=== PATIENT | male | born 1950 | race Caucasian/White ===

== ENCOUNTER 2018-04-19 14:51 | Outpatient (REF) | payer MEDICARE, SELFPAY ==
[2018-04-19 15:08] LABS: BUN 23 mg/dL (7-18); Calcium 8.4 mg/dL (8.5-10.1); Glucose 180 mg/dL (70-100)
[2018-04-19 15:10] LABS: Anion Gap 8.5 mmol/L (3-11); CO2 26.5 mmol/L (21.0-32.0); CREATININE 1.37 mg/dL (0.70-1.30); Chloride 101 mmol/L (98-107); Estimated GFR 51.67 (mL/min/1.73m2); Potassium 4.1 mmol/L (3.5-5.1); Sodium 136 mmol/L (136-145)
== END 2018-04-19 14:52 ==
LOC: LBN 14:51
PROVIDERS: PCP Family Medicine; Visit Provider Family Medicine
DX: I48.91 Unspecified atrial fibrillation (principal); E87.5 Hyperkalemia; Z47.1 Aftercare following joint replacement surgery
CPT/HCPCS: 80048

== ENCOUNTER 2019-03-14 19:22 | Outpatient (REF) | payer MEDICARE, SELFPAY ==
[2019-03-14 21:05] LABS: Anion Gap 9.7 mmol/L (3-11); BUN 29 mg/dL (7-18); CO2 28.3 mmol/L (21.0-32.0); Calcium 9.3 mg/dL (8.5-10.1); Chloride 98 mmol/L (98-107); Glucose 95 mg/dL (70-100); Potassium 4.6 mmol/L (3.5-5.1); Sodium 136 mmol/L (136-145)
== END 2019-03-14 19:42 ==
LOC: NCHCN 19:22
PROVIDERS: PCP Family Medicine; Visit Provider Family Medicine
DX: I50.9 Heart failure, unspecified (principal)
CPT/HCPCS: 80048

== ENCOUNTER 2019-04-04 08:52 | Outpatient (REF) | payer MEDICARE, SELFPAY ==
[2019-04-04 21:30] LABS: Anion Gap 7.7 mmol/L (3-11); BUN 23 mg/dL (7-18); CO2 29.3 mmol/L (21.0-32.0); CREATININE 1.31 mg/dL (0.70-1.30); Calcium 9.2 mg/dL (8.5-10.1); Chloride 100 mmol/L (98-107); Estimated GFR 54.25 (mL/min/1.73m2); Glucose 127 mg/dL (70-100); NT-proBNP 906 pg/mL; Potassium 4.3 mmol/L (3.5-5.1); Sodium 137 mmol/L (136-145)
== END 2019-04-04 09:12 ==
LOC: LBN 08:52
PROVIDERS: PCP Family Medicine; Visit Provider Nurse Practitioner Family
DX: I50.32 Chronic diastolic (congestive) heart failure (principal)
CPT/HCPCS: 80048; 83880

== ENCOUNTER 2020-02-16 11:09 | Outpatient (REF) | payer MEDICARE, SELFPAY ==
[2020-02-16 21:55] LABS: ALT 36 U/L (16-63); AST 32 U/L (15-37); Albumin 4.2 g/dL (3.4-5.0); Alkaline Phosphatase 70 U/L (46-116); Anion Gap 6.4 mmol/L (3-11); BUN 23 mg/dL (7-18); Bilirubin, Total 0.7 mg/dL (0.2-1.0); CO2 30.6 mmol/L (21.0-32.0); CREATININE 1.52 mg/dL (0.70-1.30); Calculated LDL 131 mg/dL (<100); Chloride 102 mmol/L (98-107); Cholesterol 194 mg/dL (<200); Estimated GFR 45.57 (mL/min/1.73m2); Glucose 106 mg/dL (74-106); HDL Cholesterol 34 mg/dL (40-60); Potassium 4.2 mmol/L (3.5-5.1); Sodium 139 mmol/L (136-145); Total Protein 7.4 g/dL (6.4-8.2); Triglyceride 147 mg/dL (<150)
== END 2020-02-16 11:29 ==
LOC: NCHCN 11:09
PROVIDERS: PCP Family Medicine; Visit Provider Family Medicine
DX: I10 Essential (primary) hypertension (principal); I50.9 Heart failure, unspecified; Z13.6 Encounter for screening for cardiovascular disorders
CPT/HCPCS: 80053; 80061

== ENCOUNTER 2020-03-30 12:06 | Outpatient (REF) | payer MEDICARE, SELFPAY ==
[2020-03-30 22:22] LABS: Anion Gap 7.6 mmol/L (3-11); BUN 26 mg/dL (7-18); CO2 30.4 mmol/L (21.0-32.0); Calcium 9.2 mg/dL (8.5-10.1); Chloride 99 mmol/L (98-107); Estimated GFR 46.27 (mL/min/1.73m2); Glucose 130 mg/dL (74-106); Potassium 3.9 mmol/L (3.5-5.1); Sodium 137 mmol/L (136-145)
== END 2020-03-30 12:26 ==
LOC: LBN 12:06
PROVIDERS: PCP Family Medicine; Visit Provider Nurse Practitioner Family
DX: I50.9 Heart failure, unspecified (principal)
CPT/HCPCS: 80048

== ENCOUNTER 2020-05-04 08:28 | Outpatient (REF) | payer MEDICARE, SELFPAY ==
[2020-05-04 22:25] LABS: Hemoglobin A1C 6.1 % (3.8-5.6)
[2020-05-04 22:51] LABS: Anion Gap 10.8 mmol/L (3-11); BUN 21 mg/dL (7-18); CO2 27.2 mmol/L (21.0-32.0); CREATININE 1.27 mg/dL (0.70-1.30); Calcium 9.2 mg/dL (8.5-10.1); Calculated LDL 140 mg/dL (<100); Chloride 103 mmol/L (98-107); Cholesterol 198 mg/dL (<200); Estimated GFR 56.07 (mL/min/1.73m2); Glucose 102 mg/dL (74-106); HDL Cholesterol 36 mg/dL (40-60); Potassium 4.3 mmol/L (3.5-5.1); Sodium 141 mmol/L (136-145); Triglyceride 111 mg/dL (<150)
[2020-05-06 04:52] LABS: Vitamin D 25 Total 30.7 ng/ml (30-100)
== END 2020-05-04 08:48 ==
LOC: NCHCN 08:28
PROVIDERS: PCP Family Medicine; Visit Provider Family Medicine
DX: I10 Essential (primary) hypertension (principal); E88.81 Metabolic syndrome and other insulin resistance; R73.03 Prediabetes; N18.3 Chronic kidney disease, stage 3 (moderate)
CPT/HCPCS: 80048; 80061; 82306; 83036

== ENCOUNTER 2020-10-26 14:45 | Outpatient (REF) | payer MEDICARE, OTHER, SELFPAY ==
[2020-10-26 14:12] LABS: Bacteria Negative HPF (Negative); C & S Indicated? No; Casts Negative LPF (Negative); Crystals Negative HPF (Negative); Epithelial Cells Rare HPF (Negative); Mucus Negative (Negative); RBC 0-2 HPF (0-2); WBC 0-2 HPF (0-5)
[2020-10-26 21:21] LABS: Abs Immature Grans 0.01 10^3/uL (0.0-0.06); Absolute Basophil Count 0.06 10^3/uL (0.0-0.2); Absolute Eosinophil Count 0.13 10^3/uL (0.0-0.7); Absolute Monocyte Count 1.01 10^3/uL (0.1-0.8); Absolute Neutrophil Count 5.39 10^3/uL (1.2-6.7); Basophils % 0.7; Eosinophils % 1.5; HCT 43.2 % (40.0-50.0); HGB 14.6 g/dL (13.5-17.5); Immature Grans % 0.1; MCH 31.7 pg (27.0-33.0); MCHC 33.8 % (32.0-36.0); MCV 93.7 fL (80-95); MPV 10.9 fL (8.0-11.0); Monocytes % 11.5; Neutrophils % 61.2; Nucleated RBC 0 %; Platelet Count 218 10^3/uL (130-400); RBC 4.61 10^6/uL (4.36-5.78); RDW 12.1 % (11.8-14.1); RDW-SD 41.8 fL
[2020-10-26 21:32] LABS: ALT 36 U/L (16-63); AST 31 U/L (15-37); Albumin 4.3 g/dL (3.4-5.0); Alkaline Phosphatase 71 U/L (46-116); Anion Gap 8.2 mmol/L (3-11); BUN 23 mg/dL (7-18); Bilirubin, Total 0.8 mg/dL (0.2-1.0); CO2 28.8 mmol/L (21.0-32.0); CREATININE 1.4 mg/dL (0.70-1.30); Calcium 9.2 mg/dL (8.5-10.1); Chloride 102 mmol/L (98-107); Estimated GFR 49.96 (mL/min/1.73m2); Glucose 95 mg/dL (74-106); Sodium 139 mmol/L (136-145); Total Protein 7.2 g/dL (6.4-8.2)
== END 2020-10-26 14:46 | disposition home or self-care (01) ==
LOC: NCHCN 14:45
PROVIDERS: PCP Nurse Practitioner Family; Visit Provider Nurse Practitioner Family
DX: R10.32 Left lower quadrant pain (principal)
CPT/HCPCS: 80053; 81015; 85025

== ENCOUNTER 2021-07-25 09:15 | Outpatient (REF) | payer MEDICARE, OTHER, SELFPAY ==
[2021-07-25 16:43] LABS: ALT 31 U/L (16-63); AST 25 U/L (15-37); Alkaline Phosphatase 80 U/L (46-116); Anion Gap 9.6 mmol/L (3-11); BUN 24 mg/dL (7-18); Bilirubin, Total 0.6 mg/dL (0.2-1.0); CO2 28.4 mmol/L (21.0-32.0); CREATININE 1.4 mg/dL (0.70-1.30); Calculated LDL 54 mg/dL (<100); Chloride 103 mmol/L (98-107); Cholesterol 102 mg/dL (<200); Estimated GFR 49.82 (mL/min/1.73m2); Glucose 103 mg/dL (74-106); HDL Cholesterol 38 mg/dL (40-60); Potassium 4.1 mmol/L (3.5-5.1); Sodium 141 mmol/L (136-145); Total Protein 6.8 g/dL (6.4-8.2); Triglyceride 51 mg/dL (<150)
[2021-07-25 17:08] LABS: Hemoglobin A1C 6.2 % (<5.7)
== END 2021-07-25 09:16 | disposition home or self-care (01) ==
LOC: NCHCN 09:15
PROVIDERS: PCP Nurse Practitioner Family; Visit Provider Family Medicine
DX: I10 Essential (primary) hypertension (principal); R73.03 Prediabetes; E78.6 Lipoprotein deficiency; N18.30 Chronic kidney disease, stage 3 unspecified; E66.9 Obesity, unspecified; I48.91 Unspecified atrial fibrillation
CPT/HCPCS: 80053; 80061; 83036

== ENCOUNTER 2022-10-03 08:19 | Outpatient (REF) | payer MEDICARE, OTHER, SELFPAY ==
[2022-10-03 15:41] LABS: ALT 34 U/L (16-63); AST 34 U/L (15-37); Albumin 4.1 g/dL (3.4-5.0); Alkaline Phosphatase 77 U/L (46-116); BUN 25 mg/dL (7-18); Bilirubin, Total 0.8 mg/dL (0.2-1.0); CREATININE 1.4 mg/dL (0.70-1.30); Calcium 9.5 mg/dL (8.5-10.1); Calculated LDL 43 mg/dL (<100); Chloride 102 mmol/L (98-107); Cholesterol 89 mg/dL (<200); Estimated GFR 53.07 (mL/min/1.73m2); Glucose 116 mg/dL (74-106); HDL Cholesterol 35 mg/dL (40-60); Potassium 4.1 mmol/L (3.5-5.1); Sodium 139 mmol/L (136-145); Total Protein 7.2 g/dL (6.4-8.2); Triglyceride 57 mg/dL (<150)
== END 2022-10-03 08:20 | disposition home or self-care (01) ==
LOC: LBN 08:19
PROVIDERS: PCP Nurse Practitioner Family; Visit Provider Nurse Practitioner Family
DX: I25.10 Atherosclerotic heart disease of native coronary artery without angina pectoris (principal); E78.2 Mixed hyperlipidemia; I10 Essential (primary) hypertension
CPT/HCPCS: 80053; 80061

== ENCOUNTER 2023-05-14 13:35 | Outpatient (REF) | payer MEDICARE, OTHER, SELFPAY ==
[2023-05-15 10:22] LABS: Kappa Free Light Chain 2.25 mg/dL (0.33-1.94); Lambda Free Light Chain 1.38 mg/dL (0.57-2.63)
[2023-05-15 13:54] LABS: Albumin 60.3 % (55.8-66.1); Albumin g/dL 4.3 g/dL (3.6-5.2); Total Protein 7.2 g/dL (6.3-8.2)
[2023-05-15 14:27] LABS: Albumin, Urine mg/dL 2 mg/dL; Globulins, Urine mg/dL 6 mg/dL; Immunotyping, Urine (See Note); Total Protein Urine 8 mg/dL (See Note)
== END 2023-05-14 13:36 | disposition home or self-care (01) ==
LOC: LBN 13:35
PROVIDERS: PCP Nurse Practitioner Family; Visit Provider Student in an Organized Health Care Education/Training Program
DX: E85.9 Amyloidosis, unspecified (principal)
CPT/HCPCS: 84156; 84166; 86335; 83883; 84165

== ENCOUNTER 2023-09-25 22:16 | Outpatient (REF) | payer MEDICARE, OTHER, SELFPAY ==
[2023-09-25 21:26] LABS: HCT 40.4 % (40.0-50.0); HGB 13.8 g/dL (13.5-17.5); MCH 31.6 pg (27.0-33.0); MCHC 34.2 % (32.0-36.0); MCV 92 fL (80-95); MPV 10.5 fL (8.0-11.0); Platelet Count 241 10^3/uL (130-400); RBC 4.37 10^6/uL (4.36-5.78); RDW 12.1 % (11.8-14.1); RDW-SD 41.6 fL; WBC 6.41 10^3/uL (4.4-10.8)
[2023-09-25 21:45] LABS: ALT 25 U/L (16-63); AST 28 U/L (15-37); Albumin 4.3 g/dL (3.4-5.0); Alkaline Phosphatase 81 U/L (46-116); Anion Gap 9.1 mmol/L (3-11); BUN 29 mg/dL (7-18); Bilirubin, Total 0.6 mg/dL (0.2-1.0); CO2 25.9 mmol/L (21.0-32.0); CREATININE 1.7 mg/dL (0.70-1.30); Calcium 10.1 mg/dL (8.5-10.1); Chloride 101 mmol/L (98-107); Estimated GFR 41.78 (mL/min/1.73m2); Glucose 95 mg/dL (74-106); Lipase 33 U/L (16-77); Potassium 4.1 mmol/L (3.5-5.1); Sodium 136 mmol/L (136-145)
== END 2023-09-25 22:17 | disposition home or self-care (01) ==
LOC: NCHCN 22:16
PROVIDERS: PCP Family Medicine; Visit Provider Family Medicine
DX: R10.9 Unspecified abdominal pain (principal)
CPT/HCPCS: 80053; 83690; 85027

== ENCOUNTER 2023-11-19 14:08 | Outpatient (REF) | payer MEDICARE, OTHER, SELFPAY ==
[2023-11-19 14:57] LABS: ALT 32 U/L (16-63); AST 27 U/L (15-37); Albumin 3.9 g/dL (3.4-5.0); Alkaline Phosphatase 79 U/L (46-116); Anion Gap 7.7 mmol/L (3-11); BUN 20 mg/dL (7-18); Bilirubin, Total 0.6 mg/dL (0.2-1.0); CO2 30.3 mmol/L (21.0-32.0); CREATININE 1.5 mg/dL (0.70-1.30); Calcium 9.1 mg/dL (8.5-10.1); Calculated LDL 65 mg/dL (<100); Chloride 103 mmol/L (98-107); Cholesterol 126 mg/dL (<200); Estimated GFR 48.55 (mL/min/1.73m2); Glucose 97 mg/dL (74-106); HDL Cholesterol 47 mg/dL (40-60); Sodium 141 mmol/L (136-145); Total Protein 7.1 g/dL (6.4-8.2); Triglyceride 74 mg/dL (<150)
[2023-11-19 15:06] LABS: Hemoglobin A1C 5.8 % (<5.7)
== END 2023-11-19 14:09 | disposition home or self-care (01) ==
LOC: NCHCN 14:08
PROVIDERS: PCP Family Medicine; Visit Provider Family Medicine
DX: I10 Essential (primary) hypertension (principal); R73.09 Other abnormal glucose
CPT/HCPCS: 80053; 80061; 83036

== ENCOUNTER → 2024-01-10 08:44 | Outpatient (BNVA) | payer MEDICARE, OTHER, SELFPAY | PROVIDERS: PCP Family Medicine; Referring Provider Family Medicine; Visit Provider Surgery | DX: K92.1 Melena (principal); R10.9 Unspecified abdominal pain; K21.9 Gastro-esophageal reflux disease without esophagitis; K57.30 Diverticulosis of large intestine without perforation or abscess without bleeding | CPT/HCPCS: 99204 ==

== ENCOUNTER 2024-01-10 10:16 | Outpatient (CLI) | payer MEDICARE, OTHER, SELFPAY ==
[2024-01-10 10:11] LABS: Abs Immature Grans 0.02 10^3/uL (0.0-0.06); Absolute Basophil Count 0.04 10^3/uL (0.0-0.2); Absolute Eosinophil Count 0.13 10^3/uL (0.0-0.7); Absolute Lymphocyte Count 1.73 10^3/uL (1.2-3.4); Absolute Monocyte Count 0.92 10^3/uL (0.1-0.8); Absolute Neutrophil Count 4.36 10^3/uL (1.2-6.7); Basophils % 0.6; Eosinophils % 1.8; HCT 40.7 % (40.0-50.0); HGB 13.7 g/dL (13.5-17.5); Immature Grans % 0.3; MCH 31.1 pg (27.0-33.0); MCHC 33.7 % (32.0-36.0); MCV 92 fL (80-95); MPV 9.8 fL (8.0-11.0); Monocytes % 12.8; Neutrophils % 60.5; Platelet Count 220 10^3/uL (130-400); RBC 4.41 10^6/uL (4.36-5.78); RDW 12.9 % (11.8-14.1); RDW-SD 44.3 fL
[2024-01-10 10:40] LABS: ALT 38 U/L (16-63); AST 22 U/L (15-37); Albumin 4.3 g/dL (3.4-5.0); Alkaline Phosphatase 89 U/L (46-116); Anion Gap 7.1 mmol/L (3-11); BUN 17 mg/dL (7-18); Bilirubin, Total 0.5 mg/dL (0.2-1.0); CO2 31.9 mmol/L (21.0-32.0); CREATININE 1.3 mg/dL (0.70-1.30); Calcium 9.4 mg/dL (8.5-10.1); Chloride 103 mmol/L (98-107); Estimated GFR 57.65 (mL/min/1.73m2); Ferritin 133 ng/mL (26-388); Glucose 102 mg/dL (74-106); Potassium 3.8 mmol/L (3.5-5.1); Sodium 142 mmol/L (136-145); Total Protein 7.7 g/dL (6.4-8.2)
== END 2024-01-10 10:17 | disposition home or self-care (01) ==
LOC: LBO 10:16
PROVIDERS: PCP Family Medicine; Visit Provider Surgery
DX: K62.5 Hemorrhage of anus and rectum (principal); K21.9 Gastro-esophageal reflux disease without esophagitis; K57.30 Diverticulosis of large intestine without perforation or abscess without bleeding; Z95.0 Presence of cardiac pacemaker; I50.9 Heart failure, unspecified; E78.5 Hyperlipidemia, unspecified; Z92.29 Personal history of other drug therapy
CPT/HCPCS: 36415; 80053; 99204; 82728; 85025

== ENCOUNTER 2024-01-18 09:45 | Day surgery (SDC) | payer MEDICARE, OTHER, SELFPAY ==
--- NOTE | 2024-01-18 | DI.CT_ITS ---
Exam(s) CT ABDOMEN PELVIS W EXAM: CT ABDOMEN PELVIS W CLINICAL HISTORY: colon cancer 30cm. TECHNIQUE: Imaging Protocol: Axial computed tomography images with coronal and sagittal reformatted images were created and reviewed CONTRAST MATERIAL: Intravenous: Omnipaque-350 100cc Oral: Yes. Oral contrast was also administered for bowel opacification. COMPARISON: No exams were available for comparison FINDINGS: VISUALIZED LUNG BASES: No nodules nor pleural effusions evident. Cardiac pacemaker wires noted. ABDOMEN: There is no ascites. LIVER: There are no focal hepatic lesions evident. No dilated intrahepatic ducts. GALLBLADDER/BILIARY: No obvious gallbladder pathology. CBD is not dilated. PANCREAS: No evidence of pancreatic mass nor dilatation of the pancreatic duct. SPLEEN: Spleen is not enlarged. No obvious intrasplenic lesions. Splenic and portal veins are paten t. ADRENALS: There are no significant adrenal masses. KIDNEYS:There are benign cysts noted in both kidneys, these being more numerous and larger in left ki dney, the largest measuring 6 by 3.3 cm. This is a large cysts which extends from the renal pelvis r egion out to the peripheral cortex surface. No solid components. However, there is also a calcifica tions seen in the lateral cortex of the left kidney which appears to be in a slightly dilated calyx a nd consistent with 3 adjacent calculi, the largest measuring 5-6 mm. The other cysts do not contain calculi. There is no solid renal mass evident. There are no calculi in the nondilated ureters. ABDOMINAL AORTA: Abdominal aorta is not enlarged. LYMPH NODES:There is no retroperitoneal nor paraaortic adenopathy. ABDOMINAL WALL: No evidence of significant anterior abdominal wall nor inguinal hernia. GI: There is no evidence of bowel obstruction, free air, nor abscess. The administered oral contrast has reached ileocecal valve. There is no evidence of small-bowel obst ruction. There is some fluid noted in the ascending colon and transverse colon and proximal descendi ng colon no obvious colitis pattern. There are sigmoid diverticuli without evidence of acute diverti culitis. PELVIS: GI: No evidence of appendicitis. LYMPH NODES: There is no intrapelvic nor inguinal adenopathy. REPRODUCTIVE: The prostate gland is enlarged, measuring 6 cm wide by 5 cm AP by 6 cm craniocaudal. URINARY BLADDER: No calculi nor obvious masses evident OSSEOUS: No fractures and no significant osseous lesions. IMPRESSION: 1. There are multiple cysts in both kidneys, larger and more numerous in the left kidney. In additio n, there are multiple small calculi in what is probably a dilated calyx in the upper pole the left ki dney. No hydronephrosis. No hydroureter. No solid renal masses evident. No abnormality in the uri nary bladder. X 2. Enlarged prostate gland. 3. Fluid noted throughout most of the large bowel. Probable diarrhea. No evidence of small-bowel ob struction. No free fluid. 4. Sigmoid diverticuli with no evidence of acute diverticulitis. RADIATION DOSE DELIVERED: 1,108.85mGy.cm Total DLP DATA REPOSITORY: All CT scans at this facility are submitted to the National Radiology Data Registry (NRDR) Dose Index Registry (DIR) with the [employer] (ACR). RADIATION OPTIMIZATION: All CT scans at this facility use at least one of these dose optimization te chniques: automated exposure control; mA and/or kV adjustment per patient size (includes targeted exa ms where dose is matched to clinical indication); or iterative reconstruction.
[2024-01-18 09:50] VITALS: BP 143/90; PULSE 76; RESP 18; TEMP 36.7; O2SAT 76
[2024-01-18] MEDS: Lactated Ringers 1,000 ML 80 ML IV (10:18)
--- NOTE | 2024-01-18 11:44 | W.ANESPRE ---
General Info Date of Service Date Performed: 01/18/24 Height: 5 ft 11 in Weight: 99.6 kg Body Mass Index (BMI): 30.6 Surgical Procedure: Operation Date: 01/18/24 11:05 Proposed Procedure Side Surgeon p Colonoscopy/Gastroscopy Jailyn Melgar DO Actual Procedure Side Surgeon p Colonoscopy/Gastroscopy Not Applicable Jailyn Melgar DO Pre-Op Diagnosis Post-Op Diagnosis screening GERD Meds Allergies and Home Medications Allergies Allergy/AdvReac Type Severity Reaction Status Date / Time No Known Drug Allergies Allergy Unknown KNDA Verified 01/18/24 10:05 metoprolol AdvReac Per Verified 01/18/24 10:05 states it dropped his BP way to low Home Medication Medication Instructions Recorded atorvastatin 20 mg tablet 20 mg PO DAILY 01/04/24 lisinopril 5 mg tablet 5 mg PO DAILY 01/04/24 rivaroxaban 20 mg tablet (Xarelto) 20 mg PO DAILY 01/04/24 sildenafil 100 mg tablet 100 mg PO DAILY PRN 01/04/24 simethicone 125 mg capsule (Gas 125 mg PO TID-QID PRN 01/04/24 Relief (simethicone)) torsemide 20 mg tablet 20 mg PO DAILY 01/04/24 acetaminophen 500 mg tablet 1,000 mg PO QHS 01/10/24 (Tylenol Extra Strength) coenzyme Q10 300 mg capsule (Co 300 mg PO .one every other day 01/10/24 Q-10) omeprazole 20 mg capsule,delayed mg 01/18/24 release pantoprazole 20 mg tablet,delayed mg PO 01/18/24 release Current Visit Medications: Current Medications Generic Name Dose Route Start Last Admin Trade Name Freq PRN Reason Stop Dose Admin Hyoscyamine Sulfate 0.125 mg 01/18/24 03:26 Hyoscyamine 0.125 Mg Sl/Oral/Chew SL 02/17/24 03:25 DIRECTED PRN Ringer's Solution 1,000 mls @ 80 mls/hr 01/18/24 06:00 01/18/24 10:18 IV 02/16/24 23:59 80 mls/hr INFUSION FREDRICK Administration IV Miscellaneous Supplies 1 each 01/18/24 06:00 Iv Access IV 02/16/24 23:59 DIRECTED FREDRICK Ondansetron HCl 4 mg 01/18/24 03:26 Ondansetron 4 Mg/2 Ml Vial IVP 02/17/24 03:25 Q4H PRN PRN Nausea / Vomiting Sodium Chloride 0 ml 01/18/24 06:00 Normal Saline Flush 10 Ml Syr IV 02/16/24 23:59 PRN PRN Sodium Chloride 0 ml 01/18/24 06:00 Normal Saline 10 Ml Vial IJ 02/16/24 23:59 DIRECTED PRN Sterile Water 0 ml 01/18/24 06:00 Water,Injection,Sterile 10 Ml Vial IJ 02/16/24 23:59 DIRECTED PRN PFSH Active Problems Active Problems: Problem Status Onset Code 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 Z92.29 Rectal bleeding K62.5 Pacemaker Z95.0 Abdominal pain R10.9 Melena K92.1 Medical History Medical History Erectile dysfunction Heart failure Prediabetes Diverticula of intestine Essential hypertension Atrial fibrillation Chronic kidney disease, stage 3 Chronic sinusitis Cervical spondylosis Metabolic syndrome X GERD (gastroesophageal reflux disease) Actinic keratosis Amyloidosis Hyperlipidemia Surgical History Surgical History History of colonoscopy (~06/26/12) Tobacco Smoking/Tobacco Use Status: Never Alcohol Alcohol Intake: former Substance Use Substance use: Never Substance use type: does not use Vital Signs and Lab Results Vital Signs Most Recent Vital Signs in EMR: Most Recent Vital Signs Temp Pulse Resp BP Pulse Ox 36.7 C 76 18 143/90 H 76 L 01/18/24 09:50 01/18/24 09:50 01/18/24 09:50 01/18/24 09:50 01/18/24 09:50 Lab Results Blood Type / Crossmatch: No Data to Display Complete Blood Count: White Blood Count 7.20 10^3/uL (4.4-10.8) 01/10/24 10:05 Red Blood Count 4.41 10^6/uL (4.36-5.78) 01/10/24 10:05 Hemoglobin 13.7 g/dL (13.5-17.5) 01/10/24 10:05 Hematocrit 40.7 % (40.0-50.0) 01/10/24 10:05 Platelet Count 220 10^3/uL (130-400) 01/10/24 10:05 Complete Metabolic Panel: Sodium 142 mmol/L (136-145) 01/10/24 10:05 Potassium 3.8 mmol/L (3.5-5.1) 01/10/24 10:05 Chloride 103 mmol/L (98-107) 01/10/24 10:05 Carbon Dioxide 31.9 mmol/L (21.0-32.0) 01/10/24 10:05 BUN 17 mg/dL (7-18) 01/10/24 10:05 Creatinine 1.3 mg/dL (0.70-1.30) 01/10/24 10:05 Est GFR (CKD-EPI 2020) 57.65 (mL/min/1.73m2) 01/10/24 10:05 Calcium 9.4 mg/dL (8.5-10.1) 01/10/24 10:05 Albumin 4.3 g/dL (3.4-5.0) 01/10/24 10:05 Glucose 102 mg/dL (74-106) 01/10/24 10:05 Liver Function Panel: Alanine Aminotransferase (ALT/SGPT) 38 U/L (16-63) 01/10/24 10:05 Aspartate Amino Transf (AST/SGOT) 22 U/L (15-37) 01/10/24 10:05 Coagulation Panel: No Data to Display Cardiac Panel: No Data to Display Arterial Blood Gas: No Data to Display Venous Blood Gas: No Data to Display Pancreas Panel: No Data to Display Thyroid Panel: No Data to Display Infectious Disease: No Data to Display Blood Cultures: No Data to Display Toxicology Panel: No Data to Display Anesthesia Assessment and Plan Anesthesia History Personal History: No History of Anesthesia Complications Family History: No Family History of Anesthesia Complications Exercise Tolerance Exercise Tolerance: Metabolic Equivalents>4 Pertinent Negatives Pertinent Negatives: No Symptoms of GERD Cardiac & Pulmonary Exam Cardiac Exam: Normal S1/S2 Heart Sounds Pulmonary Exam: Clear Bilateral Breath Sounds Implantable Cardiac Device Does patient have a Pacemaker or an ICD?: Yes Device Sales Supervisor:: Outline MRI CRTD Reason for Placement:: A-flutter cardiomyopathy Date of Last Device Interrogation:: 01/01/24 Airway Exam Known Difficult Airway: No Mallampati Class: 2 Mouth Opening: Normal (> 3cm) Thyromental Distance: Greater than 3 cm Neck Range of Motion: Full ROM Neck Circumference: Normal Teeth Condition: Normal Dentition ASA Classification ASA Score: ASA 3 Emergency Case?: No NPO Status NPO Status: NPO Clears >2 hours, Solids >8 hours Anesthesia Plan Resuscitation Status: Full Code Anesthesia Technique: General Anesthesia Airway Planned: Natural Airway Monitors Used: Standard Monitors Preoperative Comments:: 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 Despite heart issues, compensates well with no recent change in respiratory effort. Lona Bird WINE SALES REPRESENTATIVE
[2024-01-18 11:51] VITALS: BMI 30.6
--- NOTE | 2024-01-18 12:02 | ESO_PTH ---
PATIENT: Junior Manriquez LOC: [facility] U#:[id number] AGE/SX: 73/M ROOM: RE01/18/[address]: Jailyn Melgar : 1950 BED: DIS: 01/18/2024 SPEC #: [id number] RECD: 01/18/24 13:31 STATUS: JESSIKA CALDWELL #: [id number] HARSHA: 01/18/24 12:[address]: Jailyn Melgar DEPT: Surgical Specimen RECD BY: Adri Davis ENTERED: 01/18/24 13:34 SP TYPE: Tayloro KING DR: Cris Mora Tissues: 1 - BIOPSY BOWEL 2 - STOMACH BIOPSY 3 - STOMACH BIOPSY 4 - ESOPHAGUS BIOPSY 5 - ESOPHAGUS BIOPSY 6 - BIOPSY BOWEL 7 - BIOPSY BOWEL Procedures: GROSS AND MICRO LEVEL 4 IMMUNOPEROXIDASE STAIN Comments: [id number]
[2024-01-18] MEDS: Endoscopic Tattoo 5 ML SYR IJ (12:35)
[2024-01-18 12:57] VITALS: BP 93/63; PULSE 75; RESP 16; TEMP 36.4; O2SAT 95
--- NOTE | 2024-01-18 12:57 | PDOC.DSDIS_ITS ---
Date of service: 01/18/24 Time of Service: 12:57 Discharge Plan Disposition Patient Disposition: Home Discharge Details Attending Provider: Jailyn Melgar Primary Care Provider: Cris Mora Home Meds and New Rx's Prescriptions: New pantoprazole [Protonix] 40 mg tablet,delayed release (DR/EC) 40 mg PO DAILY Qty: 30 12RF Held Xarelto 20 mg tablet 20 mg PO DAILY Hold Instructions: Resume on 01/24/24. do not restart Rx Instructions: must administer with evening meal Discontinued pantoprazole 20 mg tablet,delayed release (DR/EC) PO Patient Comments: TAKE 1 TABLET BY MOUTH DAILY omeprazole 20 mg capsule,delayed release(DR/EC) Patient Comments: TAKE 1 CAPSULE BY MOUTH EVERY DAY No Action Co Q-10 300 mg capsule 300 mg PO .one every other day acetaminophen [Tylenol Extra Strength] 500 mg tablet 1,000 mg PO QHS atorvastatin 20 mg tablet 20 mg PO DAILY lisinopril 5 mg tablet 5 mg PO DAILY sildenafil 100 mg tablet 100 mg PO DAILY PRN Rx Instructions: administer 30 minutes to 4 hours before activity simethicone [Gas Relief (simethicone)] 125 mg capsule 125 mg PO TID-QID PRN torsemide 20 mg tablet 20 mg PO DAILY Rx Instructions: take 1/2 tab daily Discharge Instructions Additional Instructions: [facility] Colonoscopy Post- Op Instructions Instructions for Everyone who is given Anesthesia: For your safety, please do the following for the next twenty-four (24) hours: *Do Not operate a motor vehicle (car, truck, motorcycle, etc.) *Do Not drink alcoholic beverages or use any recreational drugs for the first 24 hours or while taking pain medications. The medications in your body may have a reaction that can be dangerous. *Do Not make any important decisions or sign any important papers. Findings: Esophagitis-start Protonix 40 mg p.o. daily. Stop Prilosec 20 mg p.o. daily Diverticulosis Colon cancer-do not take Eliquis. No aspirin and/ibuprofen/Motrin/Naprosyn. Tylenol is okay Follow up: January 23 at 1030. We will review the results of the CT scan and biopsies and formulate a surgical plan. 1. No lifting over 20 pounds or strenuous activity for the first 24 hours after your procedure. After 24 hours there are no restrictions on your activity but you may feel fatigued for a few days. 2. After you arrive home you may have a light meal and return to your normal diet as you can tolerate it without feeling sick to your stomach. 3. You may have a bloated, gaseous feeling in your belly (abdomen) after a colonoscopy. Passing gas and belching will help. Walking or lying down on your left side with your knees flexed may relieve the discomfort. Call the office at [phone] (Office) or [phone] (Hospital) right away if you notice any of the following: a.Vomiting of blood or ?coffee ground stools?. b.Rectal bleeding 1Tbsp, blood clots or continuous bleeding. c.Severe belly (abdominal) pain. d.A hard distended belly (abdomen) and an inability to pass gas. 4. Please don?t expect to have a normal BM (bowel movement) for 2-3 days after your procedure. 5. If there are questions regarding the findings of your procedure, please contact your doctor 6. If you are unable to contact your doctor with a problem, contact the hospital at [phone]. 7. Continue all your regular medications unless directed otherwise. I understand the above instructions and have no questions. Signature of Patient or Adult Escort Name of Responsible Adult Escort Signature of Nurse Date/Time Activity:: see above Diet:: see above Discharge Orders Discharge Orders: Discharge Order (Routine); Ordered 01/18/24 Ordered By: Jailyn Melgar DS: Diagnosis Discharge Diagnosis (1) Erosive esophagitis: Status: Acute (2) Diverticula of colon: Status: Acute (3) Colon cancer: Status: Chronic Asessment and Plan: The patient is seen and examined after their colonoscopy.? The patient has been able to pass gas.? They are not having abdominal pain.? They have been able to tolerate liquids and a snack.? They do not have any nausea or vomiting.? They are not having any chest pain or shortness of breath.??? They are not having any rectal bleeding. Their vital signs have been stable-see nursing notes. We discussed findings during their colonoscopy, and any biopsies that were done/polyps that were removed. The patient will be sent a letter with any biopsy results, and when to repeat the colonoscopy.-see discharge instructions. Patient was given explicit instructions to follow-up regarding colonoscopy-refer to discharge instructions.? We reviewed resumption of medications. Patient verbalized understanding and discharged in stable and satisfactory condition- See nursing notes.
--- NOTE | 2024-01-18 13:01 | COLE_ITS ---
Date of service: 01/18/24 Time of Service: 13:02 Colonoscopy Report Date of procedure: 01/18/24 Pre-op diagnosis general: melena Post-op diagnosis procedure note: other (sigmoid diverticula/I hemorrhoids/colon mass prob cancer) Surgeon: Jailyn Melgar Anesthesia Type: General:No Airway Estimated blood loss (mL): 3 Pathology: other Complications: None Disposition: same day Prep: Miralax/Dulcolax Retraction Time: 28 Procedure Description: After informed consent was obtained the patient was taken to the procedure room and placed in a left decubitous position. Monitors were applied and a time out was done. The patients name, date of , procedure, allergies to medications and metal in their body was reviewed. The patient was then sedated. Once sedated and comfortable a rectal exam was done. External exam was normal. Internal exam revealed a normal sphincter tone and no palpable masses. The scope was then introduced and retrofelexed. Grade II internal hemorrhoids x3 columns were identified. The scope was then advanced to the cecum w/out difficulty. The TI and appendiceal orifice were identified. The scope was then slowly retracted over 28 minutes back into the rectum. He has diverticula confined to the sigmoid colon. There are no signs of active bleeding or infection. There are multiple large diverticula. At 30 cm he has a fungating polypoid mass. Multiple biopsies were taken of this lesion using a hot snare. The area was also tattooed. No significant bleeding was noted. The scope was removed and the patient was woken up and taken back to Same day surgery in stable condition. The patient tolerated the procedure well and there were no immediate complications. Follow up: The patient should follow up January [address] and pathology and formulate treatment plan. Sea discharge instructions [place] Bowel Prep [place] Bowel Prep Right Colon: 3 Left Colon: 3 Transverse Colon: 3 Total Score: 9
--- NOTE | 2024-01-18 13:02 | ENDO_ITS ---
Date of service: 01/18/24 Time of Service: 13:02 Endoscopy Report DATE OF PROCEDURE: 01/18/24 PRE-OP DIAGNOSIS: melena POST-OP DIAGNOSIS: other (esophagitis ) SURGEON: Jailyn Melgar ANESTHESIA TYPE: General:No Airway ESTIMATED BLOOD LOSS: 1 PATHOLOGY: other COMPLICATIONS: None DISPOSITION: same day PROCEDURE DESCRIPTION: After informed consent was obtained the patient was take to the procedure room and placed in a supine position. Monitors were applied and a time out was done. The patients name, date of , procedure type, allergies to medications and metal in their body was reviewed. A bite block was placed and the patient was sedated. Once sedated and comfortable the gastroscope was advanced through the oropharynx which was grossly normal into the esophagus. The proximal and mid- esophagus were normal. In the distal esophagus there were no esophageal varices/diverticula/strictures. The Z-line is irregular. 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 And mild esophagitis. There is no erosions or active bleeding. The scope was advanced into the stomach and through the pylorus into the 3rd portion of the duodenum. The duodenum was noted to be normal. Biopsies were done, all specimens are retrieved and no bleeding is noted. The scope was retracted back into the stomach and biopsies were done to rule out H. pylori. There were no gastritis or ulcers. The scope was retroflexed. The cardia and fundus were noted to be normal. There is no a hiatal hernia noted. The scope was retracted back into the esophagus and biopsies were done of the GE junction at all 4 quadrants to rule out Flynn's. The GE junction was at 40 cm. The scope was removed and we continued to the CE.
[2024-01-18 13:07] VITALS: BP 107/75; PULSE 75; TEMP 36.5
[2024-01-18] MEDS: Omnipaque 350 MG/ML 50 ML BTL PO (13:15)
[2024-01-18] MEDS: Breeza Beverage 473 ML BTL PO ×2 (13:16→13:17)
--- NOTE | 2024-01-18 13:18 | NUR.NOTE ---
Construction Inspector Jailyn delivers oral contrast, two bottles to patient. Tech educated patient on oral contrast instructions. Tech confirms any patient allergies or oral contrast contraindications. Patient verbalized understanding of education. Patient starts drinking first bottle of oral contrast. 13:15pm on 01/18/24. MKavitha Pagan RN Nursing Note:
--- NOTE | 2024-01-18 13:21 | W.ANESPOSTOP ---
Postoperative Evaluation Date, Time and Location Date Performed: 01/18/24 Time Performed: 13:21 Patient Location: Day Surgery Unit Vital Signs Most Recent Imported Vital Signs: Most Recent Vital Signs Temp Pulse Resp BP Pulse Ox 36.5 C 75 16 107/75 95 01/18/24 13:07 01/18/24 13:07 01/18/24 12:57 01/18/24 13:07 01/18/24 12:57 Pain Score Most Recent Pain Score: Most Recent Pain Score Pain Level 3 01/18/24 13:07 Assessment Mental Status: Awake (Alert & Oriented to Patient Baseline) Airway and Respiratory Function: Patent airway with normal (patient baseline) respiratory exam Cardiovascular Function: Hemodynamically Stable Hydration Status: Adequately Hydrated Nausea & Vomiting: No Nausea or Vomiting Pain: Pain is tolerable per patient Peripheral Nerve Block: Patient did not receive a nerve block Postoperative Comments:: Pt. will remain NPO and be going to CT per surgeon due to mass found.
[2024-01-18 13:25] LABS: Abs Immature Grans 0.02 10^3/uL (0.0-0.06); Absolute Basophil Count 0.05 10^3/uL (0.0-0.2); Absolute Eosinophil Count 0.11 10^3/uL (0.0-0.7); Absolute Lymphocyte Count 1.57 10^3/uL (1.2-3.4); Absolute Monocyte Count 0.59 10^3/uL (0.1-0.8); Absolute Neutrophil Count 4.55 10^3/uL (1.2-6.7); Basophils % 0.7 %; Eosinophils % 1.6 %; HGB 12.8 g/dL (13.5-17.5); Immature Grans % 0.3 %; Lymphocytes % 22.8 %; MCH 31.1 pg (27.0-33.0); MCHC 32.8 % (32.0-36.0); MCV 95 fL (80-95); MPV 9.5 fL (8.0-11.0); Monocytes % 8.6 %; Platelet Count 188 10^3/uL (130-400); RBC 4.12 10^6/uL (4.36-5.78); RDW 12.6 % (11.8-14.1); RDW-SD 44.2 fL; WBC 6.89 10^3/uL (4.4-10.8)
[2024-01-18 13:50] LABS: Ferritin 118 ng/mL (26-388)
[2024-01-18] MEDS: Omnipaque 350 MG/ML 100 ML BTL IJ (14:31)
[2024-01-18] MEDS: Normal Saline - Diluent 50 ML VIAL IJ (14:32)
--- NOTE | 2024-01-18 14:40 | SUR.PHASEII ---
Patient transported to CT by Science Consultant from [facility] after completing two bottles of oral contrast solutions. 14:39om on 01/18/24. Liset KAYE
[2024-01-18 22:17] LABS: CEA 1.5 ng/mL (See Note)
== END 2024-01-18 15:20 | disposition home or self-care (01) ==
PROVIDERS: PCP Family Medicine; Visit Provider Surgery
PROC: (CPT 45384; principal; 2024-01-18 11:00)
DX: K92.1 Melena (principal); K57.30 Diverticulosis of large intestine without perforation or abscess without bleeding; K22.70 Barrett's esophagus without dysplasia; C18.9 Malignant neoplasm of colon, unspecified; K64.1 Second degree hemorrhoids; Z95.0 Presence of cardiac pacemaker
CPT/HCPCS: 45384; 43239; 88305; 74177; 82378; 82728; 85025; 88361; J2704; J3490; Q9967

== ENCOUNTER → 2024-01-24 10:20 | Outpatient (BNVA) | payer MEDICARE, OTHER, SELFPAY | PROVIDERS: PCP Family Medicine; Referring Provider Family Medicine; Visit Provider Surgery | DX: Z48.89 Encounter for other specified surgical aftercare (principal); C18.9 Malignant neoplasm of colon, unspecified; K21.9 Gastro-esophageal reflux disease without esophagitis | CPT/HCPCS: 99214 ==

== ENCOUNTER 2024-02-18 06:04 | Inpatient (IN) | payer MEDICARE, OTHER, SELFPAY ==
--- NOTE | 2024-02-17 17:40 | W.ANESPRE ---
General Info Date of Service Date Performed: 02/18/24 Height: 5 ft 11 in Weight: 99.6 kg Body Mass Index (BMI): 30.6 Surgical Procedure: Operation Date: 02/18/24 07:50 Proposed Procedure Side Surgeon p Sigmoid Resection Laparoscopic/ Possible Open Tre Cottrell MD Meds Allergies and Home Medications Allergies Allergy/AdvReac Type Severity Reaction Status Date / Time No Known Drug Allergies Allergy Unknown KNDA Verified 02/15/24 12:03 metoprolol AdvReac Per Verified 02/18/24 06:31 states it dropped his BP way to low Home Medication Medication Instructions Recorded atorvastatin 20 mg tablet 20 mg PO DAILY 01/04/24 lisinopril 5 mg tablet 5 mg PO DAILY 01/04/24 rivaroxaban 20 mg tablet (Xarelto) 20 mg PO DAILY 01/04/24 sildenafil 100 mg tablet 100 mg PO DAILY PRN 01/04/24 simethicone 125 mg capsule (Gas 125 mg PO TID-QID PRN 01/04/24 Relief (simethicone)) torsemide 20 mg tablet 20 mg PO DAILY 01/04/24 acetaminophen 500 mg tablet 1,000 mg PO QHS 01/10/24 (Tylenol Extra Strength) coenzyme Q10 300 mg capsule (Co 300 mg PO .one every other day 01/10/24 Q-10) pantoprazole 40 mg tablet,delayed 40 mg PO DAILY #30 tabs 01/18/24 release (Protonix) bisacodyl 5 mg tablet,delayed 5 mg PO ONCE colonscopy bowel prep 01/28/24 release (Dulcolax (bisacodyl)) #8 tabs metronidazole 500 mg tablet 500 mg PO .COMPLEX #8 tabs 01/28/24 neomycin 500 mg tablet 500 mg PO .COMPLEX #8 tabs 01/28/24 ondansetron HCl 8 mg tablet 8 mg PO Q12H #3 tabs 01/28/24 polyethylene glycol 3350 17 238 g PO ONCE colonoscopy prep 01/28/24 gram/dose oral powder #238 grams Current Visit Medications: Current Medications Generic Name Dose Route Start Last Admin Trade Name Freq PRN Reason Stop Dose Admin Acetaminophen 1,000 mg 02/18/24 06:00 Acetaminophen 500 Mg Tab PO 02/18/24 23:59 PREOP FREDRICK Alvimopan 12 mg 02/18/24 06:00 Alvimopan 12 Mg Cap PO 02/18/24 23:59 PREOP FREDRICK Gabapentin 600 mg 02/18/24 06:00 Gabapentin 300 Mg Cap PO 02/18/24 23:59 PREOP FREDRICK Ringer's Solution 1,000 mls @ 80 mls/hr 02/18/24 06:00 IV 02/18/24 23:59 INFUSION FREDRICK Ertapenem/Sodium Chloride 1 gm 50 mls @ 100 mls/hr 02/18/24 06:00 / Sodium Chloride IVPB 02/18/24 23:59 PREOP FREDRICK IV Miscellaneous Supplies 1 each 02/18/24 06:00 Iv Access IV 02/18/24 23:59 DIRECTED FREDRICK Sodium Chloride 0 ml 02/18/24 06:00 Normal Saline Flush 10 Ml Syr IV 02/18/24 23:59 PRN PRN Sodium Chloride 0 ml 02/18/24 06:00 Normal Saline 10 Ml Vial IJ 02/18/24 23:59 DIRECTED PRN Sterile Water 0 ml 02/18/24 06:00 Water,Injection,Sterile 10 Ml Vial IJ 02/18/24 23:59 DIRECTED PRN PFSH Active Problems Active Problems: Problem Status Onset Code 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 Excessive flatus R14.3 Colon cancer C18.9 Diverticula of colon K57.30 Erosive esophagitis K22.10 Hx of assisted use of blood thinners Z92.29 Rectal bleeding K62.5 Pacemaker Z95.0 Melena K92.1 Medical History Medical History Erectile dysfunction Heart failure Prediabetes Diverticula of intestine Essential hypertension Atrial fibrillation Chronic kidney disease, stage 3 Chronic sinusitis Cervical spondylosis Metabolic syndrome X GERD (gastroesophageal reflux disease) Actinic keratosis Amyloidosis Hyperlipidemia Surgical History Surgical History History of colonoscopy (~01/2024) Tobacco Smoking/Tobacco Use Status: Never Alcohol Alcohol Intake: former Substance Use Substance use: Never Substance use type: does not use Vital Signs and Lab Results Lab Results Blood Type / Crossmatch: No Data to Display Complete Blood Count: No Data to Display Complete Metabolic Panel: No Data to Display Liver Function Panel: No Data to Display Coagulation Panel: No Data to Display Cardiac Panel: No Data to Display Arterial Blood Gas: No Data to Display Venous Blood Gas: No Data to Display Pancreas Panel: No Data to Display Thyroid Panel: No Data to Display Infectious Disease: No Data to Display Blood Cultures: No Data to Display Toxicology Panel: No Data to Display Anesthesia Assessment and Plan Anesthesia History Personal History: No History of Anesthesia Complications Family History: No Family History of Anesthesia Complications Exercise Tolerance Exercise Tolerance: Metabolic Equivalents>4 Cardiac & Pulmonary Exam Cardiac Exam: Normal S1/S2 Heart Sounds Pulmonary Exam: Clear Bilateral Breath Sounds Implantable Cardiac Device Does patient have a Pacemaker or an ICD?: Yes Device [employer] Sheets Supervisor:: 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 Reason for Placement:: Heart Failure/cardiomyopathy Date of Last Device Interrogation:: 01/04/24 Airway Exam Known Difficult Airway: No Mallampati Class: 2 Mouth Opening: Normal (> 3cm) Thyromental Distance: Greater than 3 cm Neck Range of Motion: Limited ROM Neck Circumference: Normal Teeth Condition: Removable Dentures/Plates Upper and Removable Dentures/Plates Lower ASA Classification ASA Score: ASA 2 Emergency Case?: No NPO Status NPO Status: NPO Clears >2 hours, Solids >8 hours Anesthesia Plan Resuscitation Status: Full Code Anesthesia Technique: General Anesthesia Airway Planned: Endotracheal Tube Pain Management: Surgeon and patient request nerve block Monitors Used: Standard Monitors Preoperative Comments:: 73 yo Jehovah witness for lap sigmoid resection. sig PMHx: afib (xarelto- hasn't been on for ~ a month), pacer (BiV-ICD), HTN, GERD, CKDIII, never smoker. Previous Anes: - colo/EGD, prop, ketamine, no issues. Discussed plan of GAETT with TAP block, +/- 2nd IV/midline. Understands that if he needs blood and we don't give it that increased morbidity and risk of does exist.
[2024-02-18] VITALS (17 sets, daily range): BP systolic 94–163; BP diastolic 58–104; PULSE 75–79; RESP 16–20; TEMP 36.3–38.4; O2SAT 93–99; BMI 30.6
[2024-02-18] MEDS: Acetaminophen 500 MG TAB 1000 MG PO (07:23)
[2024-02-18] MEDS: Gabapentin 300 MG CAP 600 MG PO (07:26)
[2024-02-18] MEDS: Lactated Ringers 1,000 ML 80 ML IV (07:42)
[2024-02-18] MEDS: ERTAPENEM 1 GM in Normal Saline 50 ML IVPB (08:12)
--- NOTE | 2024-02-18 08:21 | W.ANESNERVE ---
Nerve Block Single Injection Procedure Date and Time Date Performed: 02/18/24 Procedure Start: 08:02 Location Where Procedure Performed Procedure Location: Operating Room Procedure Stop: 08:10 Reason Performed: Postoperative Analgesia Requesting Provider: Jailyn Melgar Timeout Performed Timeout Performed: Yes Monitoring Used ECG, Blood Pressure, SpO2 and ETCO2 Sterility Sterility: Hand Hygiene, Surgical Cap, Surgical Mask, Sterile Gloves and Chlorhexidine Sedation Given During Procedure Sedation Given (Indicate Dose Given): No Sedation given Patient Mental Status Patient Mental Status: Performed under general anesthesia Nerve Block 1st Nerve Block: Laterality: Bilateral Block Type: TAP Bilateral Ultrasound Image Saved?: Yes Needle / Catheter Used: 100mm SonoPlex II Local Anesthetic Bolus (Indicate Dose Given): Injected in 3-5ml increments after negative blood aspiration, Half of Total block solution given into each side, Bupivacaine 0.25% Dose:: 40 mL and Exparel Dose:: 20 mL Additives (Indicate Dose Given): None Ultrasound: Sterile probe cover and gel used Nerve Stimulator: Not Used Paresthesia: None Procedure Tolerated: No Complications Procedure Outcome: Successful Performed By: Rajan Sykes
[2024-02-18] MEDS: Bupivacaine 0.25% Pres-Free 30 ML VIAL (10:39)
--- NOTE | 2024-02-18 10:50 | BOWEL_PTH ---
PATIENT: Junior Manriquez LOC: U#:[id number] AGE/SX: 73/M ROOM: RE02/18/[address]: Jailyn Melgar : 1950 BED: A DIS: 02/20/2024 SPEC #: [id number] RECD: 02/18/24 13:08 STATUS: JESSIKA REQ #: [id number] HARSHA: 02/18/24 10:[address]: Jailyn Melgar DEPT: Surgical Specimen RECD BY: Adri Davis ENTERED: 02/18/24 13:09 SP TYPE: Bowel OTHR DR: Cris Mora [facility] Tissues: 1 - BIOPSY BOWEL Procedures: GROSS AND MICRO LEVEL 6 Comments: [id number]
--- NOTE | 2024-02-18 12:21 | W.BRIEF ---
Date of service: 02/18/24 Time of Service: 12:22 Brief Operative Note Procedure/Pre & Post Op Diagnoses/Tool Filer Hand: Operation Date: 02/18/24 07:50 Actual Procedures p Sigmoid Resection Laparoscopic/ Colonoscopy (Not Applicable) - Jailyn Melgar DO Pre-Op Diagnosis: AdenoCA arising from a villous. Post-Op Diagnosis: AdenoCA arising from a villous. Anesthesia Anesthesia Type: Local By Surgeon, General LMA/ETT and Primary Nerve Block 50 Specimen/Culture Specimen(s): Sigmoid Colon Complications Complications: None
--- NOTE | 2024-02-18 12:22 | W.PM.OP ---
Date of service: 02/18/24 Time of Service: 12:22 Operative Note Operative Note DATE OF PROCEDURE: 02/18/24 PRE-OP DIAGNOSIS: Colon cancer POST-OP DIAGNOSIS: same PROCEDURE: Laparoscopic sigmoid resection SURGEON: Jailyn Melgar VENDING ROUTE SERVICER: Tre Cottrell ANESTHESIA TYPE: Local By Surgeon, General LMA/ETT and Primary Nerve Block Refer to Anesthesia Record ESTIMATED BLOOD LOSS: 50 PATHOLOGY: other COMPLICATIONS: None Patient was transported to: PACU Patient's condition: stable Procedure Description: Risks, benefits and complications have been reviewed. Complications include but are not limited to bleeding, infection, anastamotic leak, injury to adjacent bowel or other organs, inability to do laparoscopicaly and adverse reaction to the medications. Questions were entertained and answered to their satisfaction and they wished to proceed. No guarantees were given or implied. Also complications such as pneumonia, blood clots, CT, CVA and, bleeding complications. Under no certain he will patient take blood products. He is a Cheondoism. Damage to the bowel, bladder, blood vessels, spleen or ureters. Any of these would require further surgery ? Adhesions noted to the left peritoneal sidewall, and from the tatooed area of the sigmoid colon to peritoneum and some scatter from the tattooing Procedure Description:? Informed consent was obtained Mr. Zaragoza was taken to the operating room and placed in a sitting position.? When the patient was placed in a sitting position he complained of dizziness.? Monitor was applied and he was noted to be in A. fib.? T.? Monitors were applied.? SCDs were applied to his lower extremities.? He was then placed under general anesthesia and intubated without difficulty. At this point the patient was placed in stirrups . The patient's abdomen was clipped of hair and prepped with ChloraPrep.? His scrotum penis and perineum were prepped with iodine solution.? Next the patient was draped in a sterile surgical fashion.? At this point a timeout was done.? The patient's name, date of , allergies to medications, DVT prophylaxis, antibiotic prophylaxis, procedure type, and any concerns were reviewed.? Fire risk was assessed.? The patient was typed and screened prior to surgery and Blood band was on his wrist. Next 1% lidocaine was injected just above the umbilicus. The incision was placed horizontally to facilitate repair of this hernia at the time of closure. An incision was made with an 11 blade.? The dissection is carried down through the hernia. A finger is placed in the abdomen and swept bluntly. There are no adhesions. The port is inserted and insufflation has begun. This port site was eventually traded for a 06/28, Assessment of the camera through the incisions of no damage to any underlying structures. #5 port is then placed above the ASIS on the right. Another 5 port is placed in the subxiphoid position. All of these were placed under direct visualization and field blocks with local anesthetic are created prior to placement. T Next the patient was placed into steep Trendelenburg and rotated to the right.? There are some adhesions from the colon to the anterior sidewall. The sigmoid colon was identified? and the tattooed area of the sigmoid colon. Using a laparoscopic Brennen and an a-traumatic grasper the colon, was grasped and using the laparoscopic LigaSure the white line of Toldt is then opened up. He does have some adhesions from old diverticular disease versus tattooing versus the tumor. However I am still easily able to identify planes and takedown the tumor. We were able to get good mobilization up to the line and splenic flexure, and down to the lateral stalks. Lateral stalks once it was mobilized the sigmoid colon was transected using a laparoscopic linear stapler. At the 20 cm and at the mid point in the left colon. At this point the insufflation was stopped and the 12 mm port was removed.? An incision was made along his old panniculectomy scar with a 10 blade.? Dissection through the subcutaneous tissue, scar tissue, and fascia was done with cautery.? I then placed my finger under the fascia and opened the fascia along the linea alba.? The sigmoid colon was then identified and pulled up through this incision.? There was adequate length and no tension around at the anastomosis.? There is no tension and the proximal and distal ends of the colon They come together quite nicely. A traditional [id number] anastomosis was created using a Endo AMANDA and TA 60. the ends of the anastomosis are oversewn with 4-0 Vicryl. The ends of the anastomosis are are pink and healthy. There is no tension on the anastomosis. We did not close the mesenteric defect. There is no bleeding noted along the dissection lines or around the spleen. The colon is returning to the abdominal cavity. ICG is given and we are able to visualize the ends of the anastomosis and there is signs of good blood flow. Next the abdomen was re-insufflated and the instruments and camera were placed back into the abdomen.? The abdomen was irrigated with 500 cc of fluid and suctioned out.? At the end the effluent was clear.? There were no signs of active bleeding.? The Colonoscope was introduced and the bowel was insufflated with air.? The anastomosis is visualized. Again the anastomotic ends are pink and healthy. Fluid was placed into the abdomen and with the insufflation there were no air bubbles identified.? The bowel was deflated and the colonoscope was removed. The bowel was visualized proximally and distally to the anastomosis. It appears pink and healthy. There is no bleeding. The scope was removed. Any leftover fluid in the abdomen was suctioned out.? Another sponge, instrument and needle count was done at this time and was correct. At this point free of the ports were removed and the fascia was inspected for any bleeding.? No bleeding was identified.? The camera was removed and the last port was removed and the abdomen was deflated The umbilical hernia was then closed with 0 Vicryl. The peritoneum and fascia that was under the Stacy retractor is closed in a domxvs-di-cyjue fashion using 0 Vicryl. The fat pad is irrigated and closed with peter. A dwight dressing is placed. At this point the drapes were removed his perineum scrotum and penis were cleaned and dried and his legs were removed from the stirrups and placed onto the operating room table.? ? The patient was taken to PACU in stable condition. The patient tolerated the procedure and there were no immediate complication. The family was apprised of the findings
--- NOTE | 2024-02-18 12:23 | W.ANESVAS ---
Midline Placement Date Performed: 02/18/24 Procedure Time: 11:50 Requesting Provider: Jailyn Melgar Procedure Location: Operating Room Sedation Given (Indicate Dose Given): No Sedation given Patient Mental Status: Performed under general anesthesia Sterility: Hand Hygiene, Surgical Cap, Surgical Mask, Sterile Gloves, Sterile Drape/Sheet and Chlorhexidine Laterality: Left Insertion Site: Basilic Midline Device: PowerGlide Pro 18G Catheter Length: 10 cm Midline Procedure Procedure: Catheter placed without resistance Dressing: Tegaderm Applied and Statlock Applied Blood Return: Present Flushes: Easily Ultrasound: Sterile probe cover and gel used Ultrasound Image Saved?: Yes Number of Attempts (See previous attempts in note section): 1 Procedure Tolerated: No Complications Procedure Outcome: Successful Performed By: Rajan Sykes
--- NOTE | 2024-02-18 12:32 | W.ANESPOSTOP ---
Postoperative Evaluation Date, Time and Location Date Performed: 02/18/24 Time Performed: 12:32 Patient Location: PACU Vital Signs Most Recent Imported Vital Signs: Most Recent Vital Signs Temp Pulse Resp BP Pulse Ox 36.3 C L 75 20 109/68 98 02/18/24 12:08 02/18/24 12:08 02/18/24 12:08 02/18/24 12:08 02/18/24 12:08 Pain Score Most Recent Pain Score: Most Recent Pain Score Pain Level 0 02/18/24 12:08 Assessment Mental Status: Arousable with meaningful communication Airway and Respiratory Function: Patent airway with normal (patient baseline) respiratory exam Cardiovascular Function: Hemodynamically Stable Hydration Status: Adequately Hydrated Nausea & Vomiting: No Nausea or Vomiting Pain: Pain is Moderate or Severe (7/10, getting medicated. ) Postoperative Pain Management: Pain being addressed with medication Peripheral Nerve Block: Regional nerve block not resolved at time of post operative discharge
[2024-02-18] MEDS: Normal Saline 10 ML VIAL IJ ×2 (12:37→15:07)
[2024-02-18] MEDS: HYDROmorphone 2 MG/ML SYR IVP (12:37)
--- NOTE | 2024-02-18 14:27 | PHA.REVIEW2 ---
Pharmacy Admission Review Admission Clinical Review Admission Pharmacy Review: No Known Drug Allergies Allergy (Unknown, Verified 02/15/24 12:03) KNDA metoprolol Adverse Reaction (Verified 02/18/24 06:31) Per states it dropped his BP way to low Resuscitation Status Full Code Height 5 ft 11 in Weight 100.698 kg Comments Comments/Follow Ups: POD #0 Pharmacy Admission Review Renal Dosing Medications needing adjustments: Reviewed List of meds needing interventions: CrCl 60.26 mL/min Anticoagulation DVT Prophylaxis: Reviewed Medications: Heparin (q12h) Opiate Usage Evaluate Pain Scale/Pains Meds: Reviewed (PRN hydromorphone and morphine - none given so far ) Scheduled Bowel Reg ordered if on Opiates?: No Relevant Labs Electrolytes, C-Reactive P, ESR: Reviewed Cardiac Review BP, HR, EF%: Reviewed (BP and HR WNL) QTc Review QTc: Reviewed (No EKG on file) IV to PO Switch IV Medications: Reviewed (Acetaminophen, ondansetron and pantoprazole) Home Meds Home Med List reviewed: Reviewed Relevent Home Meds Not ordered & why?: atorvastatin, CoQ10, Xarelto (has order for heparin), sildenafil (PRN) and torsemide Current Meds Current Medication Order Review: Reviewed Comments Comments/Follow Ups: POD #0
[2024-02-18] MEDS: ACETAMINOPHEN 1,000 MG/100 ML BTL 400 MG IVPB (15:07)
[2024-02-18] MEDS: Pantoprazole 40 MG VIAL IVP (15:07)
--- NOTE | 2024-02-18 15:32 | PGE_ITS ---
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 Their pain is well controlled. They are havi ng no nausea or vomiting. The pt is not having any chest pain or SOB, productive cough; no calf pain or swelling. The pt is making good urine. The pt pain is adequately controlled. The case was discussed with nursing and patient?s progress reviewed. All of the pt's home medications were addressed and adjusted accordingly for their oral intact status. He is complaining of right eye pain and tearing. There is no redness or injection to the conjunctiva. There does not appear to be any damage to the lids or lashes. I think there is just some corneal irritation. Will give him refresh tears and ketorolac drops He does not have much of an appetite. I told him if it tastes good and he is hungry to go ahead but if he feels full or bloated to stop eating tonight he can rest but in the morning I do want him up walking around. HEENT: no jaundice. no eye pain/drainage/redness/swelling. Mild sore throat Cardio- NSR no chest pain, BP stable. Pulm: no sob or productive cough. no hemoptysis Incision- clean/dry. Dressing intact no excessive bleeding or drainage Patient is doing well at this time. All his and his 's questions were answered to their satisfaction. I discussed with the patient and/or there family about the findings in surgery and the pt's progress. We reviewed expectations for progress in the hospital; what the pt could expect for recovery time and length of stay. We discussed the importance of walking and pulmonary toilet to avoid blood clots and pneumonia. Continue current plans for pulmonary toilet, GI and DVT prophylaxis. We shall continue the current plan for pain management as it is at an appropriate level, and working well for the pt. Appropriate measures will be taken for constipation prevention, and this was also reviewed with the pt. The wound care plan was reviewed with nursing as well. see orders Objective Last Vital Signs Temp 37.4 C 02/18/24 15:27 Pulse 75 02/18/24 15:27 Resp 17 02/18/24 15:27 BP 114/71 02/18/24 15:27 Pulse Ox 93 02/18/24 15:27 Time Spent with Patient Time Spent with Patient: 25-34 minutes Time was spent: preparing to see the patient(eg.review tests), obtaining and/or reviewing separately otained hiistory, ordering medications,tests, procedures, referring, communicating with other health healthcare sales representative, indepentently interpreting results, counseling the patient, care coordination and other
[2024-02-18] MEDS: Normal Saline Flush 10 ML SYR IVP (20:38)
[2024-02-18] MEDS: Gabapentin 100 MG CAP PO (20:40)
--- NOTE | 2024-02-18 20:52 | NUR.NOTE ---
Patient states his right eye is no longer bothering him and refused eye drops.Nursing Note:
[2024-02-19] VITALS (7 sets, daily range): BP systolic 126–156; BP diastolic 84–91; PULSE 74–76; RESP 16–20; TEMP 36.2–38; O2SAT 95–97
[2024-02-19] MEDS: ACETAMINOPHEN 1,000 MG/100 ML BTL 400 MG IVPB ×2 (00:03→07:53)
[2024-02-19] MEDS: Lactated Ringers 1,000 ML 75 ML IV (00:26)
[2024-02-19] MEDS: traMADol 50 MG TAB PO ×2 (05:47→11:07)
[2024-02-19 06:24] LABS: Abs Immature Grans 0.04 10^3/uL (0.0-0.06); Absolute Basophil Count 0.01 10^3/uL (0.0-0.2); Absolute Lymphocyte Count 1.13 10^3/uL (1.2-3.4); Absolute Monocyte Count 1.18 10^3/uL (0.1-0.8); Absolute Neutrophil Count 9.81 10^3/uL (1.2-6.7); Basophils % 0.1 %; HCT 38.2 % (40.0-50.0); HGB 13.1 g/dL (13.5-17.5); Immature Grans % 0.3 %; Lymphocytes % 9.3 %; MCHC 34.3 % (32.0-36.0); MCV 91 fL (80-95); MPV 9.9 fL (8.0-11.0); Monocytes % 9.7 %; Neutrophils % 80.6 %; Platelet Count 202 10^3/uL (130-400); RBC 4.22 10^6/uL (4.36-5.78); RDW 12.5 % (11.8-14.1); RDW-SD 41.1 fL; WBC 12.17 10^3/uL (4.4-10.8)
[2024-02-19 06:37] LABS: Anion Gap 11.8 mmol/L (3-11); BUN 17 mg/dL (7-18); CO2 25.2 mmol/L (21.0-32.0); CREATININE 1.4 mg/dL (0.70-1.30); Calcium 8.9 mg/dL (8.5-10.1); Chloride 102 mmol/L (98-107); Estimated GFR 52.74 (mL/min/1.73m2); Glucose 171 mg/dL (74-106); Sodium 139 mmol/L (136-145)
[2024-02-19] MEDS: Normal Saline Flush 10 ML SYR IVP ×2 (07:53→20:07)
[2024-02-19] MEDS: Gabapentin 100 MG CAP PO ×3 (07:55→20:06)
[2024-02-19] MEDS: Lisinopril 5 MG TAB PO (07:55)
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
--- NOTE | 2024-02-19 10:45 | PT.INIE ---
PT Notes Visit Reasons: colon cancer Physical Therapy Inpatient Initial Evaluation Date: 02/19/2024 Referring Doctor: Jailyn Melgar MD PT Orders: PT CONSULT: Eval/treat Precautions: Fall. Standard. Activity as tolerated. Patient Profile/Admitting Diagnosis: Junior is a 73-year-old male s/p laparoscopic assisted sigmoidectomy on 02/18/2024. 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 Live with in a private home with a ramp to enter. Independent with all aspects of ADLs prior to surgery Equipment Owned/DME: None Subjective: Highly motivated. Agreeable to being mobilized despite discomfort. Objective: General Observation: Seated on bedside chair. Pillows over abdominal area to brace post op site and minimize pain with movement. present and playing [employer] with . Mental Status: Alert and oriented as to person, place, time, and purpose. Able to pay attention, focus, and respond appropriately. Pain: 3-4/10 in post op site Vital Signs: Closely monitored by nursing staff ROM: Right Upper Extremity: Shoulder Flexion WFL with discomfort in back past 90 degrees. Shoulder abduction WFL. Elbow flexion WFL. Wrist flexion WFL. Functional opening and closing of hand WFL. Left Upper Extremity: Shoulder Flexion WFL with discomfort in back past 90 degrees. Shoulder abduction WFL. Elbow flexion WFL. Wrist flexion WFL. Functional opening and closing of hand WFL. Right Lower Extremity: Hip flexion WFL. Hip abduction WFL. Knee flexion WFL. Ankle dorsiflexion WFL. Ankle plantarflexion WFL. Left Lower Extremity: Hip flexion WFL. Hip abduction WFL. Knee flexion WFL. Ankle dorsiflexion WFL. Ankle plantarflexion WFL. Strength: Right Upper Extremity: Shoulder flexors 4-/5. Shoulder abductors 4-4-/5. Elbow flexors 4-/5. Elbow extensors 4-/5. Special Officer Automat strong. Left Upper Extremity: Shoulder flexors 4-/5. Shoulder abductors 4-4-/5. Elbow flexors 4-/5. Elbow extensors 4-/5. Special Officer Automat strong. Right Lower Extremity: Hip flexors 4-/5. Hip abductors 4-/5. Knee flexors 4/5. Knee extensors 4-/5. Ankle dorsiflexors 4-/5. Ankle plantarflexors 4-/5. Left Lower Extremity: Hip flexors 4-/5. Hip abductors 4-/5. Knee flexors 4/5. Knee extensors 4-/5. Ankle dorsiflexors 4-/5. Ankle plantarflexors 4-/5. Bed Mobility/Transfers: Minimal cueing provided for use of B hands as needed for support, movement sequence, AD management, and posture to reduce fall risk and minimize pain report Sit to stand with stand by assist without AD Stand to sit with stand by assist without AD Bed to toilet seat stand by assist without AD Toilet seat stand by assist without AD Bed to reclining chair stand by assist without AD Reclining chair to bed stand by assist without AD Gait: Facilitated safe and correct performance of level surface ambulation covering a distance of 300 feet without an assistive device requiring minimal verbal cueing for directions, self pacing, and posture to minimize pain report in postoperative site. Minimal shortness of breath that resolved with rest. No loss of balance. Denied headache, chest pain, and lightheadedness throughout activity. Johnna decreased. Mild discomfort in postoperative site that resolved with rest. Balance: Static Sitting: Normal Dynamic Sitting: Normal Static Standing: Fair Dynamic Standing: Fair Special Tests: Mobility Limitations Standardized Measure [facility] 6 clicks Basic Mobility Inpatient Short Form: Raw Score: 23 CMS Score: 0% deficit Informed Consent/Education: Patient was instructed in purpose of PT consult and plan of care. Agreeable to proceed with established PT POC to achieve personal goals. Assessment: Patient presents with clinical signs and symptoms consistent with current/admitting diagnoses that have resulted to mobility limitations, gait instability, generalized weakness, and overall ADL decline as demonstrated by the following impairment level findings: 1. Decreased strength to abdominal muscle major muscle groups 2. Impaired standing balance 3. Impaired activity tolerance Impairments are contributing to the following functional limitations: 1. Decline in bed mobility skills 2. Decline in transfer skills 3. Increased completion time for mobility ADL performance Patient is assessed [place] a 66874 low complexity based on the following: History: 73-year-old male with past medical history as indicated above Examination: As above Presentation: Evolving Decision Makin low complexity Goals: Goals X1 week 1. Supine-Sit independent 2. Sit-Supine independent 3. Sit-Stand independent 4. Stand-Sit independent with no AD 5. Bed-Chair independent with no AD 6. Chair-Bed independent with no AD 7. Independent gait on level surface with use of no ADfor at least 1000 feet without report of pain nor dyspnea 8. Independent with home exercise program 9. Good static and dynamic standing balance/tolerance Plan of Care/Treatment Plan: 1-2x/day, 7 days/week x 1 week. Plan of care has been reviewed with the DRAMATIC COACH providing the service under Physical Therapy direction. Initiate Physical Therapy intervention for pain management as needed, strengthening, bed mobility, transfers, gait, stairs, balance training, and use of assistive device. DISCHARGE RECOMMENDATIONS: [X] Home with no services. Home when medically cleared by surgeon. No equipment needs at this time. [] Home with services [specify] [] Home with outpatient PT [] [] SNF for continued rehabilitation [] [] Shelter Care [] [] SNF versus LTC based on ability to participate and progress [] TREATMENT CODE/TIME: 9716 1 x 20 minutes for 1 unit (10: 45?11: 05). Thank you for the opportunity to participate in the care of this patient. Liss Bourgeois PT, DPT, CLT [facility] [place], [place]
[2024-02-19] MEDS: Heparin 5,000 UNITS/ML VIAL 5000 UNITS SC (14:33)
[2024-02-19] MEDS: oxyCODONE 5 MG TAB PO ×2 (15:47→20:06)
--- NOTE | 2024-02-19 16:13 | CHAPLAIN ---
Gagan was up in the chair when I visited, he was talking with two visitors. 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 We talked briefly, but he was not interested in further conversation. He thanked me for checking in with him.
[2024-02-19] MEDS: Acetaminophen 500 MG TAB 1000 MG PO ×2 (16:36→22:00)
--- NOTE | 2024-02-19 16:38 | PTTR_ITS ---
PT Notes Visit Reasons: colon cancer Physical Therapy Inpatient Treatment Note Date: 02/19/2024 Precautions: Fall. Standard. Activity as tolerated. Subjective: Highly motivated. Agreeable to being mobilized despite discomfort. Objective: General Observation: Seated on bedside chair. Pillows over abdominal area to brace post op site and minimize pain with movement. present and playing Yahtzee with . Mental Status: Alert and oriented as to person, place, time, and purpose. Able to pay attention, focus, and respond appropriately. Pain: 3-4/10 in post op site Vital Signs: Closely monitored by nursing staff Bed Mobility/Transfers: Minimal cueing provided for use of B hands as needed for support, movement sequence, AD management, and posture to reduce fall risk and minimize pain report Sit to stand with stand by assist without AD Stand to sit with stand by assist without AD Bed to toilet seat stand by assist without AD Toilet seat stand by assist without AD Bed to reclining chair stand by assist without AD Reclining chair to bed stand by assist without AD Gait: Facilitated safe and correct performance of level surface ambulation covering a distance of 600 feet without an assistive device requiring minimal verbal cueing for directions, self pacing, and posture to minimize pain report in postoperative site. Minimal shortness of breath that resolved with rest. No loss of balance. Denied headache, chest pain, and lightheadedness throughout activity. Johnna decreased. Mild discomfort in postoperative site that resolved with rest. THERA EX: Seated marches x 10 LAQs x 10 Balance: Static Sitting: Normal Dynamic Sitting: Normal Static Standing: Fair Dynamic Standing: Fair Assessment: Increased tolerance to ambulation despite pain level. No assistive device needs asof this time. Will continue to require services to progress ambulation to indpendent level without an assistive device. Plan of Care/Treatment Plan: 1-2x/day, 7 days/week x 1 week. Plan of care has been reviewed with the BUSINESS TRANSFORMATION MANAGER providing the service under Physical Therapy direction. Initiate Physical Therapy intervention for pain management as needed, strengthening, bed mobility, transfers, gait, stairs, balance training, and use of assistive device. DISCHARGE RECOMMENDATIONS: [X] Home with no services. Home when medically cleared by surgeon. No equipment needs at this time. [] Home with services [specify] [] Home with outpatient PT [] [] SNF for continued rehabilitation [] [] Incinerator Operator Care [] [] SNF versus LTC based on ability to participate and progress [] TREATMENT CODE/TIME: 15153x 24 minutes for 2 units (16:38?17:02).
[2024-02-19] MEDS: Refresh PLUS Eye Drops 0.4ml 1 EACH OU (20:06)
--- NOTE | 2024-02-19 21:19 | W.PM.PROGNOT ---
Date of Service Date of service: 02/19/24 Time of Service: 18:00 Assessment and Plan Assessment and plan (1) S/P laparoscopic-assisted sigmoidectomy: Status: Acute Assessment and plan: 73-year-old man postop day 1 from laparoscopic sigmoid resection for colon cancer. He is hemodynamically stable and doing well. Having reasonable bowel function. Hemodynamically stable. Overall plan: Advance diet as tolerated Hep-Lock IV fluid DVT prophylaxis Out of bed and ambulate Likely discharge home tomorrow Subjective Subjective Interval history since last seen: Patient has no complaints at the bedside. He is playing games with his . He says he is passing gas and has had a couple of small bowel movements. He is tolerating p.o. intake. He reports his abdominal pain remains but is a lot better than it was yesterday. Exam Narrative Exam Narrative: General: Nontoxic, comfortable and interactive Neuro: Alert and oriented x 3 Psych: Good mood and affect, reasonable insight and understanding Chest: Nonlabored breathing Heart: Regular rate, irregular rhythm Abdomen: Soft, mildly distended, minimal/expected tenderness. Objective Last Vital Signs Temp 100.4 F H 02/19/24 19:30 Pulse 75 02/19/24 19:30 Resp 16 02/19/24 19:30 BP 126/84 02/19/24 19:30 Pulse Ox 95 02/19/24 19:30 Laboratory Results - last 24 hr 02/19/24 06:10 WBC 12.17 H RBC 4.22 L Hgb 13.1 L Hct 38.2 L MCV 91 MCH 31.0 MCHC 34.3 RDW 12.5 Plt Count 202 MPV 9.9 Immature Gran % 0.3 Neutrophils % 80.6 Lymphocytes % 9.3 Monocytes % 9.7 Eosinophils % 0.0 Basophils % 0.1 Nucleated RBC % 0.0 Absolute Neutrophils 9.81 H Absolute Lymphocytes 1.13 L Absolute Monocytes 1.18 H Absolute Eosinophils 0.00 Absolute Basophils 0.01 Sodium 139 Potassium 4.0 Chloride 102 Carbon Dioxide 25.2 Anion Gap 11.8 H BUN 17 Creatinine 1.4 H Est GFR (CKD-EPI 2020) 52.74 Glucose 171 H Calcium 8.9 Time Spent with Patient Time Spent with Patient: <25 minutes Time was spent: indepentently interpreting results, counseling the patient and care coordination
[2024-02-20] VITALS: TEMP 37.5
[2024-02-20 03:35] VITALS: BP 123/75; PULSE 75; RESP 16; TEMP 36.6; O2SAT 95
[2024-02-20 07:18] VITALS: BP 130/88; PULSE 75; RESP 17; TEMP 37.6; O2SAT 96
[2024-02-20] MEDS: Gabapentin 100 MG CAP PO (08:09)
[2024-02-20] MEDS: Acetaminophen 500 MG TAB 1000 MG PO (08:09)
[2024-02-20] MEDS: Lisinopril 5 MG TAB PO (08:09)
[2024-02-20] MEDS: Simethicone 80 MG CHEW 120 MG PO (08:23)
--- NOTE | 2024-02-20 08:46 | W.PM.PROGNOT ---
Date of Service Date of service: 02/20/24 Time of Service: 09:00 Assessment and Plan Assessment and plan (1) S/P laparoscopic-assisted sigmoidectomy: Status: Acute Assessment and plan: 73-year-old man postop day 2 from laparoscopic sigmoid resection. Having bowel function. Hemodynamically stable. Tolerating p.o. He can be discharged home Subjective Subjective Interval history since last seen: No complaints. Feels good. Pain adequately controlled. Having bowel function. denies nausea. No fevers. Tolerating p.o. Exam Narrative Exam Narrative: General: Nontoxic, comfortable and interactive Abdomen: Soft, minimally tender around incision only. Dressing is stained but dry and intact. I removed it at the bedside. The incision looks perfect. Alesia intact. No erythema. Objective Last Vital Signs Temp 99.7 F H 02/20/24 07:18 Pulse 75 02/20/24 07:18 Resp 17 02/20/24 07:18 BP 130/88 02/20/24 07:18 Pulse Ox 96 02/20/24 07:18 Time Spent with Patient Time Spent with Patient: <25 minutes Time was spent: preparing to see the patient(eg.review tests) and care coordination
--- NOTE | 2024-02-20 09:26 | PDOC.CMPRO ---
Date of service: 02/20/24 Time of Service: 09:26 Care Management Progress Note Progress Note Text Progress Note Text: Colon cancer Discharge Potential Discharge Needs: PCP F/U Appt and Surgical F/U Appt Anticipated Barriers to Discharge: None Identified Patient/Family Education Needs: Review discharge instructions, discuss Ask Me Three and Other (activity, limitations, follow up plan) Transportation: Private vehicle Plan: Anticipate Junior will be discharged home with no new services when medically cleared. He will follow up with his surgeon and PCP and transport with family. CM will follow and continue to assess for discharge needs. SDOH(Care Management) Screening Will the Patient Participate in the Screening?: Declined to provide
[2024-02-20] MEDS: Normal Saline Flush 10 ML SYR IVP (09:30)
--- NOTE | 2024-02-20 10:16 | W.PM.DS.N ---
Date of service: 02/20/24 Time of Service: 10:16 DS: Diagnosis Discharge Diagnosis (1) S/P laparoscopic-assisted sigmoidectomy: Status: Acute Asessment and Plan: Tolerating a diet, having good bowel function, benign abdominal exam, ready for discharge home Discharge Plan Disposition Patient Disposition: Home Condition: Good Discharge Details Reason For Visit: colon cancer Admit Date/Time: 02/18/24 06:04 Admit Provider: Jailyn Melgar Attending Provider: Jailyn Melgar [facility] Hospital Course: 73-year-old man presented for a laparoscopic sigmoid resection. His procedure went well. On postoperative day 1 he was tolerating a diet and having bowel function. He was requiring some narcotic pain control. His fluids were stopped, his diet was advanced. On postoperative day 2 he was tolerating his diet and continuing to have good bowel function. He was thus set up for discharge home. He will restart his blood thinner tomorrow. (Postop day 3) Home Meds and New Rx's Prescriptions: No Action Co Q-10 300 mg capsule 300 mg PO .one every other day acetaminophen [Tylenol Extra Strength] 500 mg tablet 1,000 mg PO QHS atorvastatin 20 mg tablet 20 mg PO DAILY lisinopril 5 mg tablet 5 mg PO DAILY sildenafil 100 mg tablet 100 mg PO DAILY PRN Rx Instructions: administer 30 minutes to 4 hours before activity simethicone [Gas Relief (simethicone)] 125 mg capsule 125 mg PO TID-QID PRN torsemide 20 mg tablet 20 mg PO DAILY Rx Instructions: take 1/2 tab daily Xarelto 20 mg tablet 20 mg PO DAILY Hold Instructions: Resume on 01/24/24. do not restart Rx Instructions: must administer with evening meal polyethylene glycol 3350 17 gram/dose powder 238 g PO ONCE Qty: 238 0RF Rx Instructions: take per colonoscopy instructions bisacodyl [Dulcolax (bisacodyl)] 5 mg tablet,delayed release (DR/EC) 5 mg PO ONCE Qty: 8 0RF Rx Instructions: take per colonoscopy instructions neomycin 500 mg tablet 500 mg PO .COMPLEX Qty: 8 0RF Rx Instructions: 500 mg orally Per bowel surgery instructions; metronidazole 500 mg tablet 500 mg PO .COMPLEX Qty: 8 0RF Rx Instructions: 500 mg orally Per bowel surgery instructions; ondansetron HCl 8 mg tablet 8 mg PO Q12H Qty: 3 0RF pantoprazole [Protonix] 40 mg tablet,delayed release (DR/EC) 40 mg PO DAILY Qty: 30 12RF Discharge Instructions Additional Instructions: Incisions: Keep clean and dry but they do not need to be covered. It is okay to shower but no tub bathing for 1 week. Activity: As tolerated without any heavy lifting or strenuous activity. Diet: Regular diet as tolerated. Eat and go slowly, stay hydrated. Medications: Resume all of your usual/regular home medications. Restart your Xarelto tomorrow. Follow-up: See Dr. Melgar in the office in the next 7 to 10 days for staple removal. Pain control: Take Tylenol, 1000 mg, every 6 hours on a schedule for the next 3 days. Activity:: Activity as Tolerated Equipment/Supplies:: No Equipment Needed Diet:: As Tolerated Discharge Orders Discharge Orders: Discharge Order (Routine); Ordered 02/20/24 Ordered By: Neo Lees DS: Summary Time Spent with Patient providing and/or coordinating discharge services: Greater than 30 minutes Status at Discharge Functional status at discharge: independent ambulation Overall status at discharge: patient is back to baseline Mental Status: mental status grossly normal Speech and Movement: speech and movement normal Mood: congruent mood Affect: normal affect Quality:SDOH Health Related Social Needs: No Data to Display Exam Narrative Exam Narrative: General: Nontoxic, comfortable and interactive Neuro: Alert and oriented x 3 Psych: Good mood and affect, good insight and understanding into his condition Abdomen: Soft, nondistended and minimally tender around incision site only. The incision itself is free of any erythema. The peter are intact. The laparoscopic port sites are also intact and without erythema. Psych Mental Status: mental status grossly normal Speech and Movement: speech and movement normal Mood: congruent mood Affect: normal affect DS: Data Vitals/I&O Vitals and I&O: Vital Signs Temperature 99.7 F H 02/20/24 07:18 Temperature Source Tympanic 02/20/24 07:18 Pulse 75 02/20/24 07:18 Pulse Rhythm Regular 02/19/24 20:25 Respiratory Rate 17 02/20/24 07:18 Respiratory Effort Normal 02/19/24 20:25 Respiratory Depth Normal 02/19/24 20:25 Respiratory Pattern Normal 02/19/24 20:25 Blood Pressure 130/88 02/20/24 07:18 Pulse Oximetry 96 02/20/24 07:18 Respiratory End-tidal CO2 33 02/18/24 12:38 Oxygen Delivery Method Room Air 02/20/24 07:18 Oxygen Flow Rate 0 02/20/24 07:18 Pain Level 2 02/20/24 09:09 Comment 5/10 chronic neck pain 02/18/24 06:20 Intake & Output 02/19/24 02/19/24 02/20/24 11:59 23:59 11:59 Intake Total 700 / 1700 1000 / 1700 Output Total 2650 / 3650 1000 / 3650 800 / 800 Balance -1950 / -1950 0 / -1950 -800 / -800 Intake: IV 100 / 1100 1000 / 1100 Oral 600 / 600 Output: Urine 2650 / 3650 1000 / 3650 800 / 800 Other: Urine Color Yellow Yellow Urine Appearance Clear Clear Urine Odor Normal Comment voided in toilet Stool Size Small Stool Characteristics Liquid Voiding Methods Toilet Toilet Toilet 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) Excessive flatus (Acute) Colon cancer (Chronic) 30cm Diverticula of colon (Acute) sigmoid colon -severe Erosive esophagitis (Acute) Hx of skilled nursing use of blood thinners (Acute) Rectal bleeding (Acute) Pacemaker (Acute) Melena (Acute) Medical History Erectile dysfunction Heart failure Prediabetes Diverticula of intestine Essential hypertension Atrial fibrillation Chronic kidney disease, stage 3 Chronic sinusitis Cervical spondylosis Metabolic syndrome X GERD (gastroesophageal reflux disease) Actinic keratosis Amyloidosis Hyperlipidemia Surgical History (Updated 02/18/24 @ 22:50 by Jailyn Melgar DO) History of appendectomy History of carpal tunnel release of both wrists Hx of total knee arthroplasty History of colonoscopy (~01/2024) Social History Smoking/Tobacco Use Status: Never Smoking risk assessment performed?: Yes Alcohol Intake: former Drug use: Never Substance use type: does not use Housing: house Do you feel safe at home: Yes Do you feel safe in your relationship?: Yes Time Spent with Patient Time Spent with Patient: <45 minutes Time was spent: preparing to see the patient(eg.review tests), indepentently interpreting results, counseling the patient and care coordination
[2024-02-20] MEDS: Pantoprazole 40 MG TABCR PO (10:19)
--- NOTE | 2024-02-20 12:03 | PDOC.CMDIS ---
Date of service: 02/20/24 Time of Service: 12:03 LACE Index Scoring Tool Questions: Length of Stay (in days): 2 Was the patient admitted via the E.D.?: No Comorbidities: Congestive Heart Failure, Any Tumor and Liver or Renal Disease E.D. Visits: 0 Answers: Total Score: 7 Risk of Readmission: Low Risk Care Management Discharge Plan Reason for Hospitalization: colon cancer Discharge Plan: Gagan will be discharged home with no new services .He will transport with his and follow up with his surgeon. Patient/Family Education Needs: Review of discharge instructions, activity, wound care, limitations, follow up plan, discuss Ask Me Three. SDOH Health Related Social Needs: No Data to Display
== END 2024-02-20 11:10 | disposition home or self-care (01) | DRG 330 ==
LOC: PDS 08:56 → MS 13:08
PROVIDERS: Admitting Provider Surgery; PCP Family Medicine; Visit Provider Surgery
PROC: 0DTN4ZG Resection of Sigmoid Colon, Percutaneous Endoscopic Approach, Hand-Assisted (ICD-10-PCS; CPT 44204; principal; 2024-02-18 07:30)
DX: E85.9 Amyloidosis, unspecified; K22.70 Barrett's esophagus without dysplasia; C18.7 Malignant neoplasm of sigmoid colon; K57.30 Diverticulosis of large intestine without perforation or abscess without bleeding; N18.30 Chronic kidney disease, stage 3 unspecified; K21.9 Gastro-esophageal reflux disease without esophagitis; I12.9 Hypertensive chronic kidney disease with stage 1 through stage 4 chronic kidney disease, or unspecified chronic kidney disease; I48.91 Unspecified atrial fibrillation; E78.5 Hyperlipidemia, unspecified; Z95.0 Presence of cardiac pacemaker; R73.03 Prediabetes; Z79.01 Long term (current) use of anticoagulants
CPT/HCPCS: 44140; 00123; 36415; 76942; 80048; 88305; 97161; 97530; 85025; 88309; C9290; J0131; J0665; J1100; J1170; J1335; J1644; J2371; J2405; J2470; J2704

== ENCOUNTER → 2024-02-28 11:47 | Outpatient (BNVA) | payer MEDICARE, OTHER, SELFPAY | PROVIDERS: PCP Family Medicine; Referring Provider Family Medicine; Visit Provider Physical Therapy Assistant | DX: Z48.02 Encounter for removal of sutures (principal) ==

== ENCOUNTER → 2024-03-04 10:33 | Outpatient (BNVA) | payer MEDICARE, OTHER, SELFPAY | PROVIDERS: PCP Family Medicine; Referring Provider Family Medicine; Visit Provider Surgery | DX: Z48.815 Encounter for surgical aftercare following surgery on the digestive system (principal); C18.9 Malignant neoplasm of colon, unspecified ==

== ENCOUNTER 2024-04-13 00:16 | Outpatient (RCR) | payer MEDICARE, OTHER, SELFPAY ==
[2024-04-11 09:12] LABS: Abs Immature Grans 0.01 10^3/uL (0.0-0.06); Absolute Basophil Count 0.08 10^3/uL (0.0-0.2); Absolute Eosinophil Count 0.23 10^3/uL (0.0-0.7); Absolute Lymphocyte Count 2.23 10^3/uL (1.2-3.4); Absolute Monocyte Count 1.08 10^3/uL (0.1-0.8); Absolute Neutrophil Count 4.21 10^3/uL (1.2-6.7); Eosinophils % 2.9 %; HCT 39.3 % (40.0-50.0); Immature Grans % 0.1 %; Lymphocytes % 28.4 %; MCH 30.8 pg (27.0-33.0); MCHC 33.1 % (32.0-36.0); MCV 93 fL (80-95); Monocytes % 13.8 %; Neutrophils % 53.8 %; Platelet Count 250 10^3/uL (130-400); RBC 4.22 10^6/uL (4.36-5.78); RDW 13.2 % (11.8-14.1); RDW-SD 45.2 fL; WBC 7.84 10^3/uL (4.4-10.8)
[2024-04-11 09:29] LABS: ALT 24 U/L (16-63); AST 22 U/L (15-37); Alkaline Phosphatase 88 U/L (46-116); Anion Gap 6.4 mmol/L (3-11); BUN 21 mg/dL (7-18); Bilirubin, Total 0.71 mg/dL (0.2-1.0); CO2 30.6 mmol/L (21.0-32.0); CREATININE 1.2 mg/dL (0.70-1.30); Calcium 8.9 mg/dL (8.5-10.1); Chloride 102 mmol/L (98-107); Estimated GFR 63.46 (mL/min/1.73m2); Glucose 100 mg/dL (74-106); Sodium 139 mmol/L (136-145); Total Protein 7.4 g/dL (6.4-8.2)
[2024-04-11] MEDS: Normal Saline Flush 10 ML SYR IVP (10:01)
[2024-04-11 19:23] LABS: CEA 1.6 ng/mL (See Note)
[2024-04-13] MEDS: Normal Saline Flush 10 ML SYR IVP (10:55)
== END 2024-04-16 23:59 | disposition home or self-care (01) ==
LOC: INF 00:16
PROVIDERS: PCP Family Medicine; Visit Provider Internal Medicine Hematology & Oncology
DX: C18.7 Malignant neoplasm of sigmoid colon (principal); Z45.2 Encounter for adjustment and management of vascular access device
CPT/HCPCS: 36591; 80053; 96523; 82378; 85025

== ENCOUNTER 2024-05-09 09:30 | Outpatient (RCR) | payer MEDICARE, OTHER, SELFPAY ==
[2024-04-25 10:28] LABS: Abs Immature Grans 0.02 10^3/uL (0.0-0.06); Absolute Basophil Count 0.05 10^3/uL (0.0-0.2); Absolute Eosinophil Count 0.09 10^3/uL (0.0-0.7); Absolute Lymphocyte Count 1.37 10^3/uL (1.2-3.4); Absolute Monocyte Count 0.87 10^3/uL (0.1-0.8); Absolute Neutrophil Count 3.99 10^3/uL (1.2-6.7); Basophils % 0.8 %; Eosinophils % 1.4 %; HCT 37.3 % (40.0-50.0); HGB 12.7 g/dL (13.5-17.5); Immature Grans % 0.3 %; Lymphocytes % 21.4 %; MCH 31.2 pg (27.0-33.0); MCV 92 fL (80-95); MPV 9.5 fL (8.0-11.0); Monocytes % 13.6 %; Neutrophils % 62.5 %; Platelet Count 181 10^3/uL (130-400); RBC 4.07 10^6/uL (4.36-5.78); RDW 13.3 % (11.8-14.1); RDW-SD 43.8 fL; WBC 6.39 10^3/uL (4.4-10.8)
[2024-04-25 10:52] LABS: ALT 26 U/L (16-63); AST 30 U/L (15-37); Albumin 3.9 g/dL (3.4-5.0); Alkaline Phosphatase 76 U/L (46-116); Anion Gap 6.9 mmol/L (3-11); BUN 18 mg/dL (7-18); Bilirubin, Total 0.73 mg/dL (0.2-1.0); CO2 30.1 mmol/L (21.0-32.0); CREATININE 1.3 mg/dL (0.70-1.30); Calcium 8.9 mg/dL (8.5-10.1); Chloride 103 mmol/L (98-107); Estimated GFR 57.65 (mL/min/1.73m2); Glucose 95 mg/dL (74-106); Sodium 140 mmol/L (136-145)
[2024-04-25 19:34] LABS: CEA 1.7 ng/mL (See Note)
[2024-05-09] MEDS: Normal Saline Flush 10 ML SYR IVP (09:46)
[2024-05-09 09:53] LABS: Abs Immature Grans 0.02 10^3/uL (0.0-0.06); Absolute Basophil Count 0.06 10^3/uL (0.0-0.2); Absolute Eosinophil Count 0.34 10^3/uL (0.0-0.7); Absolute Lymphocyte Count 2.18 10^3/uL (1.2-3.4); Absolute Monocyte Count 1.03 10^3/uL (0.1-0.8); Absolute Neutrophil Count 3.33 10^3/uL (1.2-6.7); Basophils % 0.9 %; Eosinophils % 4.9 %; HCT 39.2 % (40.0-50.0); HGB 13.5 g/dL (13.5-17.5); Immature Grans % 0.3 %; Lymphocytes % 31.3 %; MCH 31.3 pg (27.0-33.0); MCHC 34.4 % (32.0-36.0); MCV 91 fL (80-95); MPV 9.2 fL (8.0-11.0); Monocytes % 14.8 %; Neutrophils % 47.8 %; Platelet Count 164 10^3/uL (130-400); RBC 4.32 10^6/uL (4.36-5.78); RDW 13.9 % (11.8-14.1); RDW-SD 45.2 fL; WBC 6.96 10^3/uL (4.4-10.8)
[2024-05-09 10:10] LABS: ALT 31 U/L (16-63); AST 26 U/L (15-37); Albumin 3.8 g/dL (3.4-5.0); Alkaline Phosphatase 79 U/L (46-116); Anion Gap 8.2 mmol/L (3-11); BUN 22 mg/dL (7-18); Bilirubin, Total 0.49 mg/dL (0.2-1.0); CO2 28.8 mmol/L (21.0-32.0); CREATININE 1.3 mg/dL (0.70-1.30); Calcium 8.9 mg/dL (8.5-10.1); Chloride 101 mmol/L (98-107); Estimated GFR 57.65 (mL/min/1.73m2); Glucose 123 mg/dL (74-106); Potassium 3.8 mmol/L (3.5-5.1); Sodium 138 mmol/L (136-145); Total Protein 7.1 g/dL (6.4-8.2)
[2024-05-09 19:22] LABS: CEA 1.5 ng/mL (See Note)
== END 2024-05-17 23:59 | disposition home or self-care (01) ==
LOC: INF 09:30
PROVIDERS: PCP Family Medicine; Visit Provider Internal Medicine Hematology & Oncology
DX: C18.7 Malignant neoplasm of sigmoid colon (principal)
CPT/HCPCS: 36591; 80053; 82378; 85025

== ENCOUNTER 2024-05-09 14:26 | Emergency (ER) | payer MEDICARE, OTHER, SELFPAY ==
[2024-05-09 14:21] VITALS: BP 140/78; PULSE 76; RESP 16; TEMP 36.1; O2SAT 99
--- NOTE | 2024-05-09 14:30 | RT.EKG_ITS ---
APPROVED REPORT Exam: Resting ECG Reason for Exam: Dizziness Patient Location: E HR:73 bpm ECG Measurements Heart Rate 73 AXIS PA 133 P 145 QRSd 180 QRS -66 QT 493 T 117 QTc 554 Conclusion Atrial-ventricular dual-paced rhythm, [place] complex vs PCV Rate 73 Sgarbosa negative
--- NOTE | 2024-05-09 15:39 | ED.GENADUL_ITS ---
Discharge Plan Disposition Patient Disposition: Home Condition: Stable Discharge Details Clinical Impression: Medication adverse effect, Pacemaker, Hx of skilled nursing use of blood thinners, Mucinous adenocarcinoma of colon Primary Care Provider: Cris Mora ED Provider: Rosa Gupta Home Meds and New Rx's Prescriptions: No Action Co Q-10 300 mg capsule 300 mg PO .one every other day acetaminophen [Tylenol Extra Strength] 500 mg tablet 1,000 mg PO QHS lisinopril 5 mg tablet 10 mg PO DAILY sildenafil 100 mg tablet 100 mg PO DAILY PRN Rx Instructions: administer 30 minutes to 4 hours before activity simethicone [Gas Relief (simethicone)] 125 mg capsule 125 mg PO TID-QID PRN torsemide 20 mg tablet 20 mg PO DAILY Rx Instructions: take 1/2 tab daily Xarelto 20 mg tablet 20 mg PO DAILY Rx Instructions: must administer with evening meal ondansetron HCl 8 mg tablet 8 mg PO Q12H Qty: 3 0RF nystatin 100,000 unit/mL suspension 1 ml PO Q6H Qty: 473 0RF Rx Instructions: swish and swallow pantoprazole [Protonix] 40 mg tablet,delayed release (DR/EC) 40 mg PO DAILY Qty: 30 12RF atorvastatin 20 mg tablet 20 mg PO .nightly Patient Comments: TAKE 1 TABLET BY MOUTH EVERY DAY prochlorperazine maleate 10 mg tablet 10 mg PO Q6H PRN Patient Comments: TAKE ONE TABLET BY MOUTH EVERY 6 HOURS NEEDED FOR NAUSEA Discharge Instructions Instructions: Adverse Drug Reactions, Adult (DC) Additional Instructions: You were seen in the emergency department today for evaluation of a reaction to your chemotherapy medication. In our department you had a full physical examination performed, I reviewed your laboratory studies from this morning and evaluated an EKG, which is reassuring. We monitored you in the emergency department and you had improvement in your symptoms. It is important that you let your providers know that this happened, as they may wish to make changes to your chemotherapy regimen. You should also return to the emergency department immediately if you have a change or worsening of your pain, develop shortness of breath or chest pain, dizziness or loss of consciousness, or any other symptoms that cause you concern. Thank you for allowing us to be part of your care. HPI General Date/Time Provider Initiated Documentation: 05/09/24 14:29 . Limitations to Documentation: no limitations . Information obtained by: patient, family and old records reviewed . HPI Narrative: MDM: In brief, this is a 73-year-old male patient presenting for evaluation of dizziness, throat discomfort, and leg pain after chemotherapy. My differential includes but is not limited to medication reaction, allergic reaction, I considered anaphylaxis though the patient is reassuringly without shortness of breath, throat swelling, rash, or GI involvement to meet that criteria. I considered metabolic or electrolyte derangement, kidney injury, ACS, arrhythmia. The patient received numerous appropriate allergic reaction medications in the outpatient environment including Benadryl and steroids, and states that he has had significant improvement in his symptoms. We will monitor the patient here in the emergency department to ensure he does not have recurrence of his symptoms. I did recommend laboratory studies to evaluate for any abnormalities and the patient reports that he had labs done this morning and would prefer to have those reviewed and avoid any further labs. I did obtain an EKG to evaluate for ACS or arrhythmia. ED Course: I reviewed this morning's laboratory studies, which show no significant leukocytosis, anemia, thrombocytopenia, or significant electrolyte changes from his baseline to cause concern, and shared these results with the patient. I reviewed his EKG which shows a paced rhythm with a rate of 73, with no evidence of ischemia. On reassessment the patient was able to ambulate, states that his calves bilaterally feel sore but he is not experiencing any neurologic deficits such as weakness or sensory changes. He states that he is starting to feel back to his baseline for after chemo, will reach out to his providers to discuss any changes to his regimen that need to occur. He never developed any respiratory distress, airway edema, or other concerning symptoms of ongoing allergic reaction. At this time, the patient has had a full medical evaluation and is safe for discharge to home. They are hemodynamically stable, ambulatory, and tolerating PO. They are understanding of the follow-up plan and return precautions. They left our facility without incident. Rosa Gupta MD HPI: This is a 73-year-old male patient presenting for evaluation of an allergic reaction. The patient was getting his chemotherapy, states that this is his third round of this particular drug, and after the infusion got up and noticed that his left leg had gone numb during sitting, and noted that his throat felt ticklish and he was clearing it. He felt slightly dizzy and the infusion center was concerned for a reaction. They provided him with Benadryl, steroids, IV fluids, and a nebulizer to good effect. The patient was transferred to our facility for evaluation. Prior to this event the patient was in his normal state of health. He reports that typically when he gets chemotherapy he does not feel quite well or quite like himself, but that the symptoms are worse and he is dealt with before. His leg numbness has resolved though he does have some soreness in the back of his calves, states that he has otherwise been without fever, chills, illness, injury. He has not had any other medication changes, has not had any new soaps or foods or other potential avenues of reaction. Exam: Gen: awake and alert, in no apparent distress. Appears well nourished. HEENT: PERRL, EOMs full and without nystagmus. External ears and nose normal, mucous membranes moist. Posterior pharynx without edema Neck: Supple, full range of motion Lungs: No increased work of breathing, lung sounds clear and equal bilaterally without wheezes, rhonchi, or rales. Upper airway without stridor CV: Heart with regular rate and rhythm, no murmurs auscultated. Strong and symmetrical radial pulses. Abdomen: Soft, nondistended, non-tended to palpation. No rigidity, rebound tenderness, or guarding. MSK: No joint swelling, no redness. Full ROM without limitation, no external traumatic findings. No peripheral edema Skin: No rashes or lesions to visualized skin. Normal color, warm, and dry. Neuro: Cranial nerves II-XII intact and symmetrical bilaterally. 5/5 strength in all muscle groups x4 extremities. No sensory deficits. Ambulates with steady gait. Psych: Appropriate for situation. Related Data Home Medications ?Medication ?Instructions ?Recorded ?Confirmed lisinopril 5 mg tablet 10 mg PO DAILY 01/04/24 05/09/24 rivaroxaban 20 mg tablet (Xarelto) 20 mg PO DAILY 01/04/24 05/09/24 sildenafil 100 mg tablet 100 mg PO DAILY PRN 01/04/24 05/09/24 simethicone 125 mg capsule (Gas 125 mg PO TID-QID PRN 01/04/24 05/09/24 Relief (simethicone)) torsemide 20 mg tablet 20 mg PO DAILY 01/04/24 05/09/24 acetaminophen 500 mg tablet 1,000 mg PO QHS 01/10/24 05/09/24 (Tylenol Extra Strength) coenzyme Q10 300 mg capsule (Co 300 mg PO .one every other day 01/10/24 05/09/24 Q-10) pantoprazole 40 mg tablet,delayed 40 mg PO DAILY #30 tabs 01/18/24 05/09/24 release (Protonix) ondansetron HCl 8 mg tablet 8 mg PO Q12H #3 tabs 01/28/24 05/09/24 nystatin 100,000 unit/mL oral 1 ml PO Q6H #473 mL 02/29/24 05/09/24 suspension atorvastatin 20 mg tablet 20 mg PO .nightly 05/09/24 05/09/24 prochlorperazine maleate 10 mg 10 mg PO Q6H PRN 05/09/24 05/09/24 tablet Previous Rx's ?Medication ?Instructions ?Recorded pantoprazole 40 mg tablet,delayed 40 mg PO DAILY #30 tabs 01/18/24 release (Protonix) ondansetron HCl 8 mg tablet 8 mg PO Q12H #3 tabs 01/28/24 nystatin 100,000 unit/mL oral 1 ml PO Q6H #473 mL 02/29/24 suspension Allergies Allergy/AdvReac Type Severity Reaction Status Date / Time No Known Drug Allergies Allergy Unknown KNDA Verified 02/15/24 12:03 metoprolol AdvReac Per Verified 02/18/24 06:31 states it dropped his BP way to low General Stated Complaint: Allergic LONI: 3 Course Vital Signs Vital signs: Vital Signs Temperature 36.1 C L 05/09/24 14:21 Pulse 76 05/09/24 14:21 Respiratory Rate 16 05/09/24 14:21 Blood Pressure 140/78 05/09/24 14:21 Pulse Oximetry 99 05/09/24 14:21 Temperature 36.1 C L 05/09/24 14:21 Pulse 76 05/09/24 14:21 Respiratory Rate 16 05/09/24 14:21 Respiratory Effort Normal 05/09/24 14:48 Respiratory Pattern Normal 05/09/24 14:48 Blood Pressure 140/78 05/09/24 14:21 Pulse Oximetry 99 05/09/24 14:21 Oxygen Delivery Method Room Air 05/09/24 14:21 Oxygen Flow Rate 0 05/09/24 14:21 Medical Decision Making Quality:SDOH Health Related Social Needs: No Data to Display PFSH All Active Problems (Updated 05/09/24 @ 15:40 by Rosa Gupta MD) Medication adverse effect (Acute) Mucinous adenocarcinoma of colon (Acute) Excessive flatus (Acute) Colon cancer (Chronic) 30cm Diverticula of colon (Acute) sigmoid colon -severe Erosive esophagitis (Acute) Hx of technician terminal and repeater use of blood thinners (Acute) Rectal bleeding (Acute) Pacemaker (Acute) Melena (Acute) Medical History (Updated 05/09/24 @ 15:40 by Rosa Gupta MD) 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 Erectile dysfunction Heart failure Prediabetes Diverticula of intestine Essential hypertension Atrial fibrillation Chronic kidney disease, stage 3 Chronic sinusitis Cervical spondylosis Metabolic syndrome X GERD (gastroesophageal reflux disease) Actinic keratosis Amyloidosis Hyperlipidemia Surgical History (Updated 02/21/24 @ 07:39 by Megan Izquierdo) S/P laparoscopic-assisted sigmoidectomy (~02/2024) History of appendectomy History of carpal tunnel release of both wrists Hx of total knee arthroplasty History of colonoscopy (~01/2024) Social History Smoking/Tobacco Use Status: Never Smoking risk assessment performed?: Yes Alcohol Intake: former Drug use: Never Substance use type: does not use Housing: house Do you feel safe at home: Yes Do you feel safe in your relationship?: Yes
== END 2024-05-09 15:48 | disposition home or self-care (01) ==
PROVIDERS: Emergency Provider Emergency Medicine; PCP Family Medicine
DX: T45.1X5A Adverse effect of antineoplastic and immunosuppressive drugs, initial encounter (principal); R06.02 Shortness of breath; I12.9 Hypertensive chronic kidney disease with stage 1 through stage 4 chronic kidney disease, or unspecified chronic kidney disease; N18.30 Chronic kidney disease, stage 3 unspecified; C18.9 Malignant neoplasm of colon, unspecified; Z92.21 Personal history of antineoplastic chemotherapy; Z79.01 Long term (current) use of anticoagulants; Z95.0 Presence of cardiac pacemaker
CPT/HCPCS: 36591; 80053; 93005; 99283; 82378; 85025; 93010

== ENCOUNTER 2024-05-10 16:06 | Emergency (ER) | payer MEDICARE, OTHER, SELFPAY ==
[2024-05-10 16:08] VITALS: BP 138/86; PULSE 81; RESP 16; TEMP 36.6
--- NOTE | 2024-05-10 16:52 | ED.GENADUL_ITS ---
Discharge Plan Disposition Patient Disposition: Home Condition: Stable Discharge Details Clinical Impression: Port-A-Cath in place Primary Care Provider: Cris Mora ED Provider: Jhoan Lawrence Home Meds and New Rx's Prescriptions: Continued Co Q-10 300 mg capsule 300 mg PO .one every other day acetaminophen [Tylenol Extra Strength] 500 mg tablet 1,000 mg PO QHS lisinopril 5 mg tablet 10 mg PO DAILY sildenafil 100 mg tablet 100 mg PO DAILY PRN Rx Instructions: administer 30 minutes to 4 hours before activity simethicone [Gas Relief (simethicone)] 125 mg capsule 125 mg PO TID-QID PRN torsemide 20 mg tablet 20 mg PO DAILY Rx Instructions: take 1/2 tab daily Xarelto 20 mg tablet 20 mg PO DAILY Rx Instructions: must administer with evening meal ondansetron HCl 8 mg tablet 8 mg PO Q12H Qty: 3 0RF nystatin 100,000 unit/mL suspension 1 ml PO Q6H Qty: 473 0RF Rx Instructions: swish and swallow pantoprazole [Protonix] 40 mg tablet,delayed release (DR/EC) 40 mg PO DAILY Qty: 30 12RF atorvastatin 20 mg tablet 20 mg PO .nightly Patient Comments: TAKE 1 TABLET BY MOUTH EVERY DAY prochlorperazine maleate 10 mg tablet 10 mg PO Q6H PRN Patient Comments: TAKE ONE TABLET BY MOUTH EVERY 6 HOURS NEEDED FOR NAUSEA Discharge Instructions Additional Instructions: Follow-up with your oncologist as scheduled If you feel more ill or feel like you are suffering from an emergent medical process return to the emergency department for reevaluation HPI General Mode of arrival: ambulatory . Date/Time Provider Initiated Documentation: 05/10/24 16:10 . Limitations to Documentation: no limitations . Information obtained by: patient . History of Present Illness 73 year old M presents to the emergency department with the chief complaint of needs port de- accessedd, Patient started experiencing this day(s) (1) and it has been constant. No relieving factors improve symptom(s), No exacerbating factors reported . Patient notes no other symptoms.. Related Data Home Medications ?Medication ?Instructions ?Recorded ?Confirmed lisinopril 5 mg tablet 10 mg PO DAILY 01/04/24 05/10/24 rivaroxaban 20 mg tablet (Xarelto) 20 mg PO DAILY 01/04/24 05/10/24 sildenafil 100 mg tablet 100 mg PO DAILY PRN 01/04/24 05/10/24 simethicone 125 mg capsule (Gas 125 mg PO TID-QID PRN 01/04/24 05/10/24 Relief (simethicone)) torsemide 20 mg tablet 20 mg PO DAILY 01/04/24 05/10/24 acetaminophen 500 mg tablet 1,000 mg PO QHS 01/10/24 05/10/24 (Tylenol Extra Strength) coenzyme Q10 300 mg capsule (Co 300 mg PO .one every other day 01/10/24 05/10/24 Q-10) pantoprazole 40 mg tablet,delayed 40 mg PO DAILY #30 tabs 01/18/24 05/10/24 release (Protonix) ondansetron HCl 8 mg tablet 8 mg PO Q12H #3 tabs 01/28/24 05/10/24 nystatin 100,000 unit/mL oral 1 ml PO Q6H #473 mL 02/29/24 05/10/24 suspension atorvastatin 20 mg tablet 20 mg PO .nightly 05/09/24 05/10/24 prochlorperazine maleate 10 mg 10 mg PO Q6H PRN 05/09/24 05/10/24 tablet Previous Rx's ?Medication ?Instructions ?Recorded pantoprazole 40 mg tablet,delayed 40 mg PO DAILY #30 tabs 01/18/24 release (Protonix) ondansetron HCl 8 mg tablet 8 mg PO Q12H #3 tabs 01/28/24 nystatin 100,000 unit/mL oral 1 ml PO Q6H #473 mL 02/29/24 suspension Allergies Allergy/AdvReac Type Severity Reaction Status Date / Time No Known Drug Allergies Allergy Unknown KNDA Verified 05/10/24 16:12 metoprolol AdvReac Per Verified 05/10/24 16:12 states it dropped his BP way to low General Stated Complaint: GenMedical LONI: 4 Review of Systems All systems reviewed & are unremarkable except as noted in HPI and below Constitutional Constitutional: Denies chills, Denies fever(s) and Denies weakness Cardiovascular Cardiovascular: Denies chest pain and Denies dyspnea Respiratory Respiratory: Denies cough and Denies dyspnea Gastrointestinal Gastrointestinal: Denies abdominal pain, Denies nausea and Denies vomiting Musculoskeletal Musculoskeletal: Denies joint swelling Neurologic Neurologic: Denies weakness Exam Const General: no acute distress Orientation: alert HENMT Head: normal to inspection Ears: external ears normal General nose exam: external nose normal Mouth: moist mucous membranes Eyes General: appearance normal, both eyes and all related structures Neck Neck: normal visual inspection Resp Effort & Inspection: normal respiratory effort and able to speak in complete sentences Cardio Rate: regular rate Skin General skin exam: no rashes or lesions noted Neuro General: patient alert and patient oriented x3 Extrem General: normal to inspection Psych Mental Status: mental status grossly normal Course Vital Signs Vital signs: Vital Signs Temperature 36.6 C 05/10/24 16:08 Pulse 81 05/10/24 16:08 Respiratory Rate 16 05/10/24 16:08 Blood Pressure 138/86 05/10/24 16:08 Temperature 36.6 C 05/10/24 16:08 Pulse 81 05/10/24 16:08 Respiratory Rate 16 05/10/24 16:08 Respiratory Effort Normal 05/10/24 16:13 Respiratory Depth Normal 05/10/24 16:13 Respiratory Pattern Normal 05/10/24 16:13 Blood Pressure 138/86 05/10/24 16:08 Pain Level 0 05/10/24 16:08 Medical Decision Making 73-year-old male who gets chemotherapy for colon cancer and was seen yesterday and has port accessed and usually takes the access port off himself when he gets home did not have supplies but came here to have it removed. Denies any symptoms he feels well otherwise, there is no erythema or any other concerning findings around the port. Will nursing remove the port and he will follow-up with his cancer doctor as needed Quality:SDOH Health Related Social Needs: No Data to Display PFSH All Active Problems (Updated 05/10/24 @ 16:58 by Jhoan Lawrence MD) Port-A-Cath in place (Acute) Medication adverse effect (Acute) Mucinous adenocarcinoma of colon (Acute) Excessive flatus (Acute) Colon cancer (Chronic) 30cm Diverticula of colon (Acute) sigmoid colon -severe Erosive esophagitis (Acute) Hx of long-term use of blood thinners (Acute) Rectal bleeding (Acute) Pacemaker (Acute) Melena (Acute) Medical History (Updated 05/10/24 @ 16:58 by Jhoan Lawrence MD) 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 Erectile dysfunction Heart failure Prediabetes Diverticula of intestine Essential hypertension Atrial fibrillation Chronic kidney disease, stage 3 Chronic sinusitis Cervical spondylosis Metabolic syndrome X GERD (gastroesophageal reflux disease) Actinic keratosis Amyloidosis Hyperlipidemia Surgical History (Updated 02/21/24 @ 07:39 by Megan Izquierdo) S/P laparoscopic-assisted sigmoidectomy (~02/2024) History of appendectomy History of carpal tunnel release of both wrists Hx of total knee arthroplasty History of colonoscopy (~01/2024) Social History Smoking/Tobacco Use Status: Never Smoking risk assessment performed?: Yes Alcohol Intake: former Drug use: Never Substance use type: does not use Housing: house Do you feel safe at home: Yes Do you feel safe in your relationship?: Yes
[2024-05-10 17:30] VITALS: BP 142/78; PULSE 72; RESP 16; TEMP 36.6; O2SAT 98
== END 2024-05-10 18:13 | disposition home or self-care (01) ==
PROVIDERS: Emergency Provider Emergency Medicine; PCP Family Medicine
DX: Z45.2 Encounter for adjustment and management of vascular access device (principal); C18.9 Malignant neoplasm of colon, unspecified; I12.9 Hypertensive chronic kidney disease with stage 1 through stage 4 chronic kidney disease, or unspecified chronic kidney disease; N18.30 Chronic kidney disease, stage 3 unspecified; E78.5 Hyperlipidemia, unspecified
CPT/HCPCS: 99283

== ENCOUNTER 2024-06-06 00:58 | Outpatient (RCR) | payer MEDICARE, OTHER, SELFPAY ==
[2024-05-23] MEDS: Normal Saline Flush 10 ML SYR IVP (09:35)
[2024-05-23 09:56] LABS: Abs Immature Grans 0.03 10^3/uL (0.0-0.06); Absolute Basophil Count 0.05 10^3/uL (0.0-0.2); Absolute Eosinophil Count 0.13 10^3/uL (0.0-0.7); Absolute Lymphocyte Count 1.38 10^3/uL (1.2-3.4); Absolute Monocyte Count 1.11 10^3/uL (0.1-0.8); Absolute Neutrophil Count 4.12 10^3/uL (1.2-6.7); Basophils % 0.7 %; Eosinophils % 1.9 %; HCT 38.1 % (40.0-50.0); HGB 12.6 g/dL (13.5-17.5); Immature Grans % 0.4 %; Lymphocytes % 20.2 %; MCHC 33.1 % (32.0-36.0); MCV 94 fL (80-95); MPV 9.8 fL (8.0-11.0); Monocytes % 16.3 %; Neutrophils % 60.5 %; Platelet Count 147 10^3/uL (130-400); RBC 4.06 10^6/uL (4.36-5.78); RDW-SD 50.9 fL; WBC 6.82 10^3/uL (4.4-10.8)
[2024-05-23 10:07] LABS: ALT 43 U/L (16-63); AST 37 U/L (15-37); Albumin 3.7 g/dL (3.4-5.0); Alkaline Phosphatase 76 U/L (46-116); Anion Gap 5.3 mmol/L (3-11); BUN 17 mg/dL (7-18); Bilirubin, Total 0.69 mg/dL (0.2-1.0); CO2 30.7 mmol/L (21.0-32.0); CREATININE 1.3 mg/dL (0.70-1.30); Chloride 103 mmol/L (98-107); Estimated GFR 57.65 (mL/min/1.73m2); Glucose 144 mg/dL (74-106); Potassium 3.8 mmol/L (3.5-5.1); Sodium 139 mmol/L (136-145); Total Protein 6.7 g/dL (6.4-8.2)
[2024-05-23 18:32] LABS: CEA 2.1 ng/mL (See Note)
[2024-06-06 09:58] LABS: Abs Immature Grans 0.01 10^3/uL (0.0-0.06); Absolute Basophil Count 0.03 10^3/uL (0.0-0.2); Absolute Eosinophil Count 0.12 10^3/uL (0.0-0.7); Absolute Lymphocyte Count 1.78 10^3/uL (1.2-3.4); Absolute Monocyte Count 0.88 10^3/uL (0.1-0.8); Absolute Neutrophil Count 2.71 10^3/uL (1.2-6.7); Basophils % 0.5 %; Eosinophils % 2.2 %; HCT 38.1 % (40.0-50.0); HGB 12.9 g/dL (13.5-17.5); Immature Grans % 0.2 %; Lymphocytes % 32.2 %; MCH 31.9 pg (27.0-33.0); MCHC 33.9 % (32.0-36.0); MCV 94 fL (80-95); Monocytes % 15.9 %; Platelet Count 153 10^3/uL (130-400); RBC 4.05 10^6/uL (4.36-5.78); RDW 15.8 % (11.8-14.1); RDW-SD 53.5 fL; WBC 5.53 10^3/uL (4.4-10.8)
[2024-06-06 10:12] LABS: ALT 36 U/L (16-63); AST 30 U/L (15-37); Albumin 3.8 g/dL (3.4-5.0); Alkaline Phosphatase 79 U/L (46-116); Anion Gap 7.9 mmol/L (3-11); BUN 19 mg/dL (7-18); Bilirubin, Total 0.58 mg/dL (0.2-1.0); CO2 30.1 mmol/L (21.0-32.0); CREATININE 1.3 mg/dL (0.70-1.30); Calcium 9.1 mg/dL (8.5-10.1); Chloride 104 mmol/L (98-107); Estimated GFR 57.65 (mL/min/1.73m2); Glucose 99 mg/dL (74-106); Sodium 142 mmol/L (136-145); Total Protein 7.1 g/dL (6.4-8.2)
[2024-06-06] MEDS: Normal Saline Flush 10 ML SYR IVP (10:40)
[2024-06-06 18:22] LABS: CEA 2.2 ng/mL (See Note)
== END 2024-06-16 23:59 | disposition home or self-care (01) ==
LOC: INF 00:58
PROVIDERS: PCP Family Medicine; Visit Provider Internal Medicine Hematology & Oncology
DX: C18.7 Malignant neoplasm of sigmoid colon (principal)
CPT/HCPCS: 36591; 80053; 82378; 85025

== ENCOUNTER 2024-07-11 00:42 | Outpatient (RCR) | payer MEDICARE, OTHER, SELFPAY ==
[2024-06-25] MEDS: Normal Saline Flush 10 ML SYR IVP (10:41)
[2024-06-25 10:44] LABS: Abs Immature Grans 0.05 10^3/uL (0.0-0.06); Absolute Basophil Count 0.07 10^3/uL (0.0-0.2); Absolute Eosinophil Count 0.05 10^3/uL (0.0-0.7); Absolute Lymphocyte Count 2.83 10^3/uL (1.2-3.4); Absolute Monocyte Count 1.47 10^3/uL (0.1-0.8); Absolute Neutrophil Count 6.12 10^3/uL (1.2-6.7); Basophils % 0.7 %; Eosinophils % 0.5 %; HCT 38.9 % (40.0-50.0); HGB 12.9 g/dL (13.5-17.5); Immature Grans % 0.5 %; Lymphocytes % 26.7 %; MCH 32.4 pg (27.0-33.0); MCHC 33.2 % (32.0-36.0); MCV 98 fL (80-95); MPV 9.8 fL (8.0-11.0); Monocytes % 13.9 %; Neutrophils % 57.7 %; Platelet Count 201 10^3/uL (130-400); RBC 3.98 10^6/uL (4.36-5.78); RDW 16.1 % (11.8-14.1); RDW-SD 57.7 fL; WBC 10.59 10^3/uL (4.4-10.8)
[2024-06-25 11:00] LABS: ALT 31 U/L (16-63); AST 23 U/L (15-37); Albumin 4.1 g/dL (3.4-5.0); Alkaline Phosphatase 78 U/L (46-116); Anion Gap 8.7 mmol/L (3-11); BUN 25 mg/dL (7-18); Bilirubin, Total 0.57 mg/dL (0.2-1.0); CO2 32.3 mmol/L (21.0-32.0); CREATININE 1.5 mg/dL (0.70-1.30); Calcium 9.2 mg/dL (8.5-10.1); Chloride 103 mmol/L (98-107); Estimated GFR 48.55 (mL/min/1.73m2); Glucose 92 mg/dL (74-106); Potassium 3.8 mmol/L (3.5-5.1); Sodium 144 mmol/L (136-145); Total Protein 7.4 g/dL (6.4-8.2)
[2024-06-25 19:29] LABS: CEA 2.1 ng/mL (See Note)
[2024-07-11] MEDS: Normal Saline Flush 10 ML SYR IVP (12:27)
[2024-07-11 12:32] LABS: Abs Immature Grans 0.02 10^3/uL (0.0-0.06); Absolute Basophil Count 0.05 10^3/uL (0.0-0.2); Absolute Eosinophil Count 0.12 10^3/uL (0.0-0.7); Absolute Lymphocyte Count 1.51 10^3/uL (1.2-3.4); Absolute Neutrophil Count 3.48 10^3/uL (1.2-6.7); Basophils % 0.8 %; HCT 36.2 % (40.0-50.0); HGB 12.2 g/dL (13.5-17.5); Immature Grans % 0.3 %; Lymphocytes % 24.8 %; MCH 32.8 pg (27.0-33.0); MCHC 33.7 % (32.0-36.0); MCV 97 fL (80-95); MPV 9.4 fL (8.0-11.0); Monocytes % 14.8 %; Neutrophils % 57.3 %; Platelet Count 164 10^3/uL (130-400); RBC 3.72 10^6/uL (4.36-5.78); RDW 15.6 % (11.8-14.1); RDW-SD 55.2 fL; WBC 6.08 10^3/uL (4.4-10.8)
[2024-07-11 12:46] LABS: ALT 26 U/L (16-63); AST 25 U/L (15-37); Albumin 3.8 g/dL (3.4-5.0); Alkaline Phosphatase 75 U/L (46-116); Anion Gap 7.5 mmol/L (3-11); BUN 18 mg/dL (7-18); Bilirubin, Total 0.64 mg/dL (0.2-1.0); CO2 29.5 mmol/L (21.0-32.0); CREATININE 1.5 mg/dL (0.70-1.30); Calcium 8.8 mg/dL (8.5-10.1); Chloride 106 mmol/L (98-107); Estimated GFR 48.55 (mL/min/1.73m2); Glucose 123 mg/dL (74-106); Potassium 3.8 mmol/L (3.5-5.1); Sodium 143 mmol/L (136-145); Total Protein 6.7 g/dL (6.4-8.2)
[2024-07-11 22:30] LABS: CEA 2.2 ng/mL (See Note)
== END 2024-07-17 23:59 | disposition home or self-care (01) ==
LOC: INF 00:42
PROVIDERS: PCP Family Medicine; Visit Provider Internal Medicine Hematology & Oncology
DX: C18.7 Malignant neoplasm of sigmoid colon (principal); Z45.2 Encounter for adjustment and management of vascular access device
CPT/HCPCS: 36591; 80053; 96523; 82378; 85025

== ENCOUNTER 2024-08-07 02:51 | Outpatient (RCR) | payer MEDICARE, OTHER, SELFPAY ==
[2024-07-24 08:45] LABS: Abs Immature Grans 0.02 10^3/uL (0.0-0.06); Absolute Basophil Count 0.06 10^3/uL (0.0-0.2); Absolute Lymphocyte Count 1.99 10^3/uL (1.2-3.4); Absolute Monocyte Count 0.91 10^3/uL (0.1-0.8); Absolute Neutrophil Count 3.26 10^3/uL (1.2-6.7); Basophils % 0.9 %; Eosinophils % 4.6 %; HCT 37.7 % (40.0-50.0); HGB 12.7 g/dL (13.5-17.5); Immature Grans % 0.3 %; Lymphocytes % 30.4 %; MCH 32.9 pg (27.0-33.0); MCHC 33.7 % (32.0-36.0); MCV 98 fL (80-95); MPV 9.3 fL (8.0-11.0); Monocytes % 13.9 %; Neutrophils % 49.9 %; Platelet Count 157 10^3/uL (130-400); RBC 3.86 10^6/uL (4.36-5.78); RDW 15.2 % (11.8-14.1); RDW-SD 54.1 fL; WBC 6.54 10^3/uL (4.4-10.8)
[2024-07-24] MEDS: Normal Saline Flush 10 ML SYR IVP (08:46)
[2024-07-24 09:01] LABS: ALT 32 U/L (16-63); AST 26 U/L (15-37); Albumin 3.7 g/dL (3.4-5.0); Alkaline Phosphatase 71 U/L (46-116); BUN 15 mg/dL (7-18); Bilirubin, Total 0.79 mg/dL (0.2-1.0); CREATININE 1.4 mg/dL (0.70-1.30); Calcium 9.2 mg/dL (8.5-10.1); Chloride 106 mmol/L (98-107); Estimated GFR 52.41 (mL/min/1.73m2); Glucose 106 mg/dL (74-106); Potassium 4.2 mmol/L (3.5-5.1); Sodium 143 mmol/L (136-145); Total Protein 6.7 g/dL (6.4-8.2)
[2024-07-24 19:54] LABS: CEA 1.9 ng/mL (See Note)
[2024-08-07] MEDS: Normal Saline Flush 10 ML SYR IVP (12:10)
[2024-08-07 12:30] LABS: Abs Immature Grans 0.02 10^3/uL (0.0-0.06); Absolute Basophil Count 0.07 10^3/uL (0.0-0.2); Absolute Eosinophil Count 0.37 10^3/uL (0.0-0.7); Absolute Neutrophil Count 2.67 10^3/uL (1.2-6.7); Basophils % 1.2 %; Eosinophils % 6.6 %; HCT 34.8 % (40.0-50.0); HGB 11.9 g/dL (13.5-17.5); Immature Grans % 0.4 %; Lymphocytes % 30.2 %; MCH 33.5 pg (27.0-33.0); MCHC 34.2 % (32.0-36.0); MCV 98 fL (80-95); MPV 9.7 fL (8.0-11.0); Monocytes % 14.2 %; Neutrophils % 47.4 %; Platelet Count 157 10^3/uL (130-400); RBC 3.55 10^6/uL (4.36-5.78); RDW 14.7 % (11.8-14.1); RDW-SD 53.4 fL; WBC 5.63 10^3/uL (4.4-10.8)
[2024-08-07 12:45] LABS: ALT 30 U/L (16-63); AST 29 U/L (15-37); Alkaline Phosphatase 75 U/L (46-116); Anion Gap 6.1 mmol/L (3-11); BUN 21 mg/dL (7-18); Bilirubin, Total 0.81 mg/dL (0.2-1.0); CO2 29.9 mmol/L (21.0-32.0); CREATININE 1.6 mg/dL (0.70-1.30); Calcium 9.2 mg/dL (8.5-10.1); Chloride 104 mmol/L (98-107); Estimated GFR 44.65 (mL/min/1.73m2); Glucose 102 mg/dL (74-106); Potassium 4.1 mmol/L (3.5-5.1); Sodium 140 mmol/L (136-145); Total Protein 6.9 g/dL (6.4-8.2)
[2024-08-08 08:26] LABS: CEA 2.3 ng/mL (See Note)
== END 2024-08-16 23:59 | disposition home or self-care (01) ==
LOC: INF 02:51
PROVIDERS: PCP Family Medicine; Visit Provider Internal Medicine Hematology & Oncology
DX: C18.7 Malignant neoplasm of sigmoid colon (principal); Z45.2 Encounter for adjustment and management of vascular access device
CPT/HCPCS: 36591; 80053; 96523; 82378; 85025

== ENCOUNTER 2024-09-04 02:01 | Outpatient (RCR) | payer MEDICARE, OTHER, SELFPAY ==
[2024-08-19 08:20] LABS: Abs Immature Grans 0.02 10^3/uL (0.0-0.06); Absolute Basophil Count 0.08 10^3/uL (0.0-0.2); Absolute Lymphocyte Count 2.26 10^3/uL (1.2-3.4); Absolute Monocyte Count 0.89 10^3/uL (0.1-0.8); Absolute Neutrophil Count 2.02 10^3/uL (1.2-6.7); Basophils % 1.4 %; Eosinophils % 5.4 %; HCT 38.1 % (40.0-50.0); HGB 12.8 g/dL (13.5-17.5); Immature Grans % 0.4 %; Lymphocytes % 40.6 %; MCH 33.7 pg (27.0-33.0); MCHC 33.6 % (32.0-36.0); MCV 100 fL (80-95); MPV 9.5 fL (8.0-11.0); Neutrophils % 36.2 %; Platelet Count 176 10^3/uL (130-400); RDW 14.5 % (11.8-14.1); RDW-SD 52.2 fL; WBC 5.57 10^3/uL (4.4-10.8)
[2024-08-19 08:34] LABS: ALT 29 U/L (16-63); AST 23 U/L (15-37); Albumin 3.6 g/dL (3.4-5.0); Alkaline Phosphatase 68 U/L (46-116); Anion Gap 8.2 mmol/L (3-11); BUN 15 mg/dL (7-18); Bilirubin, Total 0.78 mg/dL (0.2-1.0); CO2 29.8 mmol/L (21.0-32.0); CREATININE 1.4 mg/dL (0.70-1.30); Calcium 8.8 mg/dL (8.5-10.1); Chloride 105 mmol/L (98-107); Estimated GFR 52.41 (mL/min/1.73m2); Glucose 113 mg/dL (74-106); Sodium 143 mmol/L (136-145); Total Protein 6.5 g/dL (6.4-8.2)
[2024-08-19 22:20] LABS: CEA 2.3 ng/mL (See Note)
[2024-09-04 09:46] LABS: Abs Immature Grans 0.02 10^3/uL (0.0-0.06); Absolute Basophil Count 0.07 10^3/uL (0.0-0.2); Absolute Eosinophil Count 0.39 10^3/uL (0.0-0.7); Absolute Lymphocyte Count 1.74 10^3/uL (1.2-3.4); Absolute Monocyte Count 0.83 10^3/uL (0.1-0.8); Basophils % 1.2 %; Eosinophils % 6.7 %; HCT 34.8 % (40.0-50.0); HGB 11.9 g/dL (13.5-17.5); Immature Grans % 0.3 %; Lymphocytes % 29.7 %; MCH 34.1 pg (27.0-33.0); MCHC 34.2 % (32.0-36.0); MCV 100 fL (80-95); MPV 9.4 fL (8.0-11.0); Monocytes % 14.2 %; Neutrophils % 47.9 %; Platelet Count 151 10^3/uL (130-400); RBC 3.49 10^6/uL (4.36-5.78); RDW 14.2 % (11.8-14.1); RDW-SD 51.2 fL; WBC 5.85 10^3/uL (4.4-10.8)
[2024-09-04 10:05] LABS: ALT 36 U/L (16-63); AST 29 U/L (15-37); Albumin 3.7 g/dL (3.4-5.0); Alkaline Phosphatase 85 U/L (46-116); Anion Gap 7.7 mmol/L (3-11); BUN 13 mg/dL (7-18); Bilirubin, Total 0.74 mg/dL (0.2-1.0); CO2 30.3 mmol/L (21.0-32.0); CREATININE 1.4 mg/dL (0.70-1.30); Chloride 106 mmol/L (98-107); Estimated GFR 52.41 (mL/min/1.73m2); Glucose 122 mg/dL (74-106); Potassium 3.8 mmol/L (3.5-5.1); Sodium 144 mmol/L (136-145); Total Protein 6.2 g/dL (6.4-8.2)
[2024-09-04] MEDS: Normal Saline Flush 10 ML SYR IVP (10:33)
[2024-09-04 19:22] LABS: CEA 2.4 ng/mL (See Note)
== END 2024-09-16 23:59 | disposition home or self-care (01) ==
LOC: INF 02:01
PROVIDERS: PCP Family Medicine; Visit Provider Internal Medicine Hematology & Oncology
DX: C18.7 Malignant neoplasm of sigmoid colon (principal); Z45.2 Encounter for adjustment and management of vascular access device
CPT/HCPCS: 36591; 80053; 82378; 85025

== ENCOUNTER 2024-09-29 02:05 | Outpatient (CLI) | payer MEDICARE, OTHER, SELFPAY ==
--- NOTE | 2024-09-29 | DI.CT_ITS ---
Exam(s) CT CHEST/ABD/PEL W EXAM: CT CHEST/ABD/PEL W CLINICAL HISTORY: Stage III sigmoid colon CA, C18.7, resected, s/p adjuvant chemotherapy. TECHNIQUE: Imaging Protocol: Axial computed tomography images with coronal and sagittal reformatted images were created and reviewed. Computer aided detection (CAD) was utilized. CONTRAST MATERIAL: Intravenous: Omnipaque 350 Contrast volume:100 ml Oral: yes / COMPARISON: CT CT ABDOMEN PELVIS W from 01/18/2024 FINDINGS: CHEST: Tracheobronchial tree: Patent. Pulmonary parenchyma: No consolidation or dominant measurable mass. Pleura: No effusion or pneumothorax. Mediastinum: Within normal limits. Aorta: Thoracic portion non-dilated. Pulmonary arteries: No visible emboli. Heart: Mildly enlarged. AICD. Watch min device. No pericardial effusion. Bones: Bridging syndesmophytes. Ankylosis of mid to lower thoracic vertebral bodies. No lytic or bl astic lesions.No compression fractures. Soft tissues: There CT. Right chest port. ABDOMEN and PELVIS: Liver: Normal density. No suspicious measurable mass. Stable small cyst. Gallbladder and biliary tract: No evidence of stones or wall thickening. No biliary dilatation. Pancreas: Normal density, no abnormal calcifications or inflammatory process. Spleen: Normal. Kidneys: Normal size, contour and axis. No obstructive uropathy. No suspicious masses seen. Area o f scarring with calcification again noted at the upper pole of the left kidney. Bilateral renal cyst s. Adrenal glands: No masses seen. Aorta: Abdominal portion non-dilated. Lymph nodes: Within normal limits. Soft tissues: Areas of dehiscence in the midline anterior abdominal wall the area of surgical scar co ntaining loops of small bowel which are not obstructed. This is new from prior. Bladder: Unremarkable. Bowel: No obstruction or bowel wall thickening. Partial sigmoid resection. Anastomosis is unremark able. Moderate quantity of stool. Peritoneal cavity: No ascites. No focal collection. No mesenteric inflammatory response. No free ai r. Bones: Unremarkable for age. Reproductive organs: Enlarged prostate IMPRESSION: No evidence of metastatic disease in the chest, abdomen or pelvis. RADIATION DOSE DELIVERED: 562.38mGy.cm Total DLP DATA REPOSITORY: All CT scans at this facility are submitted to the National Radiology Data Registry (NRDR) Dose Index Registry (DIR) with the [employer] ([employer]). RADIATION OPTIMIZATION: All CT scans at this facility use at least one of these dose optimization te chniques: automated exposure control; mA and/or kV adjustment per patient size (includes targeted exa ms where dose is matched to clinical indication); or iterative reconstruction.
[2024-09-29] MEDS: Barium Sulfate 2% W/V-Berry Smoothie 450 ML BTL PO ×2 (08:07→08:08)
[2024-09-29] MEDS: Omnipaque 350 MG/ML 100 ML BTL IJ (10:53)
[2024-09-29] MEDS: Normal Saline - Diluent 50 ML VIAL IJ (10:56)
== END 2024-09-29 02:25 ==
LOC: DI 02:05
PROVIDERS: PCP Family Medicine; Visit Provider Nurse Practitioner Family
DX: C18.7 Malignant neoplasm of sigmoid colon (principal)
CPT/HCPCS: 36591; 74177; 80053; 71260; 82378; 85025; J3490

== ENCOUNTER 2024-10-07 02:02 | Outpatient (RCR) | payer MEDICARE, OTHER, SELFPAY ==
[2024-09-29 07:55] LABS: Abs Immature Grans 0.02 10^3/uL (0.0-0.06); Absolute Basophil Count 0.02 10^3/uL (0.0-0.2); Absolute Eosinophil Count 0.01 10^3/uL (0.0-0.7); Absolute Lymphocyte Count 0.85 10^3/uL (1.2-3.4); Absolute Monocyte Count 0.06 10^3/uL (0.1-0.8); Absolute Neutrophil Count 4.89 10^3/uL (1.2-6.7); Basophils % 0.3 %; Eosinophils % 0.2 %; HCT 40.7 % (40.0-50.0); HGB 13.6 g/dL (13.5-17.5); Immature Grans % 0.3 %; Lymphocytes % 14.5 %; MCH 33.3 pg (27.0-33.0); MCHC 33.4 % (32.0-36.0); MCV 100 fL (80-95); MPV 10.1 fL (8.0-11.0); Neutrophils % 83.7 %; Platelet Count 205 10^3/uL (130-400); RBC 4.08 10^6/uL (4.36-5.78); RDW 13.2 % (11.8-14.1); RDW-SD 48.6 fL; WBC 5.85 10^3/uL (4.4-10.8)
[2024-09-29 08:12] LABS: ALT 20 U/L (16-63); AST 20 U/L (15-37); Alkaline Phosphatase 91 U/L (46-116); Anion Gap 8.9 mmol/L (3-11); BUN 22 mg/dL (7-18); Bilirubin, Total 0.81 mg/dL (0.2-1.0); CO2 28.1 mmol/L (21.0-32.0); CREATININE 1.5 mg/dL (0.70-1.30); Chloride 103 mmol/L (98-107); Estimated GFR 48.25 (mL/min/1.73m2); Glucose 150 mg/dL (74-106); Potassium 4.3 mmol/L (3.5-5.1); Sodium 140 mmol/L (136-145); Total Protein 7.2 g/dL (6.4-8.2)
[2024-09-29 08:16] LABS: Calcium 9.6 mg/dL (8.5-10.1)
[2024-09-29] MEDS: Normal Saline Flush 10 ML SYR IVP (09:05)
== END 2024-10-17 23:59 | disposition home or self-care (01) ==
LOC: INF 02:02
PROVIDERS: PCP Family Medicine; Visit Provider Internal Medicine Hematology & Oncology
DX: C18.7 Malignant neoplasm of sigmoid colon (principal)
CPT/HCPCS: 36591; 80053; 82378; 85025

== ENCOUNTER 2024-11-27 07:57 | Outpatient (REF) | payer MEDICARE, OTHER, SELFPAY ==
[2024-11-27 15:32] LABS: Hemoglobin A1C 5.8 % (<5.7)
[2024-11-27 15:56] LABS: ALT 26 U/L (16-63); AST 34 U/L (15-37); Albumin 4.1 g/dL (3.4-5.0); Alkaline Phosphatase 99 U/L (46-116); Anion Gap 9.5 mmol/L (3-11); BUN 24 mg/dL (7-18); Bilirubin, Total 0.8 mg/dL (0.2-1.0); CO2 27.5 mmol/L (21.0-32.0); CREATININE 1.3 mg/dL (0.70-1.30); Calcium 9.3 mg/dL (8.5-10.1); Calculated LDL 54 mg/dL (<100); Chloride 105 mmol/L (98-107); Cholesterol 112 mg/dL (<200); Estimated GFR 57.29 (mL/min/1.73m2); Glucose 100 mg/dL (74-106); HDL Cholesterol 48 mg/dL (>or=40); Potassium 4.3 mmol/L (3.5-5.1); Sodium 142 mmol/L (136-145); Triglyceride 50 mg/dL (<150)
== END 2024-11-27 07:58 | disposition home or self-care (01) ==
LOC: NCHCN 07:57
PROVIDERS: PCP Family Medicine; Visit Provider Family Medicine
DX: I10 Essential (primary) hypertension (principal); R73.03 Prediabetes; E78.5 Hyperlipidemia, unspecified
CPT/HCPCS: 80053; 80061; 83036

== ENCOUNTER 2025-01-06 12:13 | Outpatient (RCR) | payer MEDICARE, OTHER, SELFPAY ==
[2025-01-06 12:42] LABS: Abs Immature Grans 0.02 10^3/uL (0.0-0.06); Absolute Basophil Count 0.05 10^3/uL (0.0-0.2); Absolute Eosinophil Count 0.09 10^3/uL (0.0-0.7); Absolute Lymphocyte Count 1.71 10^3/uL (1.2-3.4); Absolute Monocyte Count 0.71 10^3/uL (0.1-0.8); Absolute Neutrophil Count 4.08 10^3/uL (1.2-6.7); Basophils % 0.8 %; Eosinophils % 1.4 %; Immature Grans % 0.3 %; Lymphocytes % 25.7 %; MCH 31.5 pg (27.0-33.0); MCHC 34.1 % (32.0-36.0); MCV 92 fL (80-95); MPV 9.8 fL (8.0-11.0); Monocytes % 10.7 %; Neutrophils % 61.1 %; Platelet Count 207 10^3/uL (130-400); RBC 4.44 10^6/uL (4.36-5.78); RDW 12.2 % (11.8-14.1); RDW-SD 41.8 fL; WBC 6.66 10^3/uL (4.4-10.8)
[2025-01-06 13:01] LABS: ALT 29 U/L (16-63); AST 27 U/L (15-37); Albumin 4.1 g/dL (3.4-5.0); Alkaline Phosphatase 97 U/L (46-116); Anion Gap 4.9 mmol/L (3-11); BUN 19 mg/dL (7-18); Bilirubin, Total 0.6 mg/dL (0.2-1.0); CO2 29.1 mmol/L (21.0-32.0); CREATININE 1.5 mg/dL (0.70-1.30); Calcium 9.2 mg/dL (8.5-10.1); Chloride 105 mmol/L (98-107); Estimated GFR 48.25 (mL/min/1.73m2); Glucose 105 mg/dL (74-106); Potassium 3.9 mmol/L (3.5-5.1); Sodium 139 mmol/L (136-145); Total Protein 7.1 g/dL (6.4-8.2)
[2025-01-06 22:31] LABS: CEA 2.1 ng/mL (See Note)
== END 2025-01-14 23:59 | disposition home or self-care (01) ==
LOC: INF 12:13
PROVIDERS: Internal Medicine Hematology & Oncology; PCP Family Medicine; Visit Provider Nurse Practitioner Family
DX: C18.7 Malignant neoplasm of sigmoid colon (principal)
CPT/HCPCS: 36415; 80053; 82378; 85025

== ENCOUNTER 2025-03-10 12:30 | Outpatient (REF) | payer MEDICARE, OTHER, SELFPAY ==
[2025-03-10 17:56] LABS: ALT 30 U/L (16-63); AST 27 U/L (15-37); Albumin 4.1 g/dL (3.4-5.0); Alkaline Phosphatase 96 U/L (46-116); Anion Gap 3.2 mmol/L (3-11); BUN 20 mg/dL (7-18); Bilirubin, Total 0.7 mg/dL (0.2-1.0); CO2 30.8 mmol/L (21.0-32.0); CREATININE 1.3 mg/dL (0.70-1.30); Calcium 9.1 mg/dL (8.5-10.1); Calculated LDL 99 mg/dL (<100); Chloride 103 mmol/L (98-107); Cholesterol 158 mg/dL (<200); Estimated GFR 57.29 (mL/min/1.73m2); Glucose 91 mg/dL (74-106); HDL Cholesterol 39 mg/dL (>or=40); Potassium 4.3 mmol/L (3.5-5.1); Sodium 137 mmol/L (136-145); Total Protein 7.2 g/dL (6.4-8.2); Triglyceride 100 mg/dL (<150)
== END 2025-03-10 12:31 | disposition home or self-care (01) ==
LOC: NCHCN 12:30
PROVIDERS: PCP Family Medicine; Visit Provider Family Medicine
DX: E78.5 Hyperlipidemia, unspecified (principal)
CPT/HCPCS: 80053; 80061

== ENCOUNTER 2025-04-13 02:24 | Outpatient (CLI) | payer MEDICARE, OTHER, SELFPAY ==
--- NOTE | 2025-04-13 | DI.CT_ITS ---
Exam(s) CT CHEST/ABD/PEL W EXAM: CT CHEST/ABD/PEL W CLINICAL HISTORY: Malignant neoplasm of sigmoid colon, surveillance, C18.7. TECHNIQUE: Imaging Protocol: Axial computed tomography images with coronal and sagittal reformatted images were created and reviewed. Computer aided detection (CAD) was utilized. CONTRAST MATERIAL: Intravenous: Omnipaque 350 Contrast volume:100 ml Oral: yes COMPARISON: CT CT ABDOMEN PELVIS W from 01/18/[address] CHEST/ABD/PEL W from 09/29/2024 FINDINGS: CHEST: Pulmonary parenchyma: No consolidation. No dominant measurable mass. Tracheobronchial tree: No bronchiectasis. No mucous plugging.No bronchial wall thickening. Pleura: No effusion or pneumothorax. Mediastinum: Within normal limits. Pulmonary arteries: No visible emboli. Cardiovascular: The heart is mildly enlarged. AICD and Watchman device noted. Coronary artery calcifications. No pericardial effusion. Thoracic aorta non- dilated. Bones: Syndesmophytes again noted in the spine. In the spine. No lytic or blastic lesions. No compression fractures. Soft tissues: The previously noted right-sided port has been removed. ABDOMEN and PELVIS: Liver: Normal density. No suspicious mass. Gallbladder and biliary tract: No evidence of stones or wall thickening. No biliary dilatation. Pancreas: Normal density, no abnormal calcifications or inflammatory process. Spleen: Normal. Kidneys: Normal size, contour and axis. Grouping of stones again noted at the upper pole of the left kidney. No obstructive uropathy. Bilateral renal cysts again noted. No suspicious masses seen. Adrenal glands: No masses seen. Aorta: Abdominal portion non-dilated. Lymph nodes: Within normal limits. Soft tissues: Small umbilical hernia. Additional midline abdominal wall hernia below the level of the umbilicus. Unchanged from prior. Bladder: Unremarkable. Bowel: Sigmoid anastomosis is unremarkable. Moderate quantity of stool. No obstruction or bowel wall thickening. Peritoneal cavity: No ascites. No focal collection. No mesenteric inflammatory response. No free air. Bones: Degenerative changes in the lumbar spine. No compression fracture. No lytic or blastic lesions. Reproductive organs: Enlarged prostate impressing on the base of the bladder. IMPRESSION: No evidence of metastatic disease in the chest, abdomen or pelvis. Sigmoid anastomosis is unremarkable. RADIATION DOSE DELIVERED: Total DLP DATA REPOSITORY: All CT scans at this facility are submitted to the National Radiology Data Registry (NRDR) Dose Index Registry (DIR) with the [employer] (ACR). RADIATION OPTIMIZATION: All CT scans at this facility use at least one of these dose optimization techniques: automated exposure control; mA and/or kV adjustment per patient size (includes targeted exams where dose is matched to clinical indication); or iterative reconstruction.
[2025-04-13] MEDS: Barium Sulfate 2% W/V-Creamy Vanilla Smoothie 450 ML BTL PO (11:01)
[2025-04-13] MEDS: Barium Sulfate 2% W/V-Berry Smoothie 450 ML BTL PO (11:02)
[2025-04-13 11:31] LABS: Abs Immature Grans 0.05 10^3/uL (0.0-0.06); HCT 43.3 % (40.0-50.0); HGB 14.6 g/dL (13.5-17.5); Immature Grans % 0.5 %; MCH 31.7 pg (27.0-33.0); MCHC 33.7 % (32.0-36.0); MCV 94 fL (80-95); MPV 9.7 fL (8.0-11.0); Platelet Count 232 10^3/uL (130-400); RBC 4.60 10^6/uL (4.36-5.78); RDW 12.3 % (11.8-14.1); RDW-SD 42.7 fL; WBC 10.04 10^3/uL (4.4-10.8)
[2025-04-13 11:48] LABS: ALT 30 U/L (16-63); AST 24 U/L (15-37); Albumin 4.3 g/dL (3.4-5.0); Alkaline Phosphatase 87 U/L (46-116); Anion Gap 11.1 mmol/L (3-11); BUN 27 mg/dL (7-18); Bilirubin, Total 0.7 mg/dL (0.2-1.0); CO2 26.9 mmol/L (21.0-32.0); Calcium 9.4 mg/dL (8.5-10.1); Chloride 98 mmol/L (98-107); Estimated GFR 48.25 (mL/min/1.73m2); Glucose 254 mg/dL (74-106); Potassium 4.7 mmol/L (3.5-5.1); Sodium 136 mmol/L (136-145); Total Protein 8.0 g/dL (6.4-8.2)
[2025-04-13] MEDS: Omnipaque 350 MG/ML 100 ML BTL IJ (14:12)
[2025-04-13] MEDS: Normal Saline - Diluent 50 ML VIAL IJ (14:13)
[2025-04-13 18:05] LABS: CEA 2.3 ng/mL (See Note)
== END 2025-04-13 02:44 ==
LOC: DI 02:24
PROVIDERS: PCP Family Medicine; Visit Provider Nurse Practitioner Family
DX: C18.7 Malignant neoplasm of sigmoid colon (principal)
CPT/HCPCS: 74177; 80053; 71260; 82378; 85025; J3490

== ENCOUNTER 2025-05-25 19:00 | Outpatient (REF) | payer MEDICARE, OTHER, SELFPAY ==
[2025-05-25 18:23] LABS: ALT 24 U/L (16-63); AST 30 U/L (15-37); Albumin 4.1 g/dL (3.4-5.0); Alkaline Phosphatase 77 U/L (46-116); Anion Gap 5.6 mmol/L (3-11); BUN 26 mg/dL (7-18); Bilirubin, Total 0.6 mg/dL (0.2-1.0); CO2 31.4 mmol/L (21.0-32.0); Calcium 9.4 mg/dL (8.5-10.1); Calculated LDL 75 mg/dL (<100); Chloride 103 mmol/L (98-107); Cholesterol 135 mg/dL (<200); Estimated GFR 57.29 (mL/min/1.73m2); Glucose 96 mg/dL (74-106); HDL Cholesterol 41 mg/dL (>or=40); Potassium 5.0 mmol/L (3.5-5.1); Sodium 140 mmol/L (136-145); Total Protein 7.2 g/dL (6.4-8.2); Triglyceride 97 mg/dL (<150)
[2025-05-25 18:33] LABS: Hemoglobin A1C 6.0 % (<5.7)
== END 2025-05-25 19:01 | disposition home or self-care (01) ==
LOC: NCHCN 19:00
PROVIDERS: PCP Family Medicine; Visit Provider Family Medicine
DX: R73.03 Prediabetes (principal); I10 Essential (primary) hypertension
CPT/HCPCS: 80053; 80061; 83036

== ENCOUNTER → 2025-05-28 13:28 | Outpatient (BNVA) | payer MEDICARE, OTHER, SELFPAY | PROVIDERS: PCP Family Medicine; Referring Provider Family Medicine; Visit Provider Physical Therapy Assistant | DX: Z12.11 Encounter for screening for malignant neoplasm of colon (principal) | CPT/HCPCS: S0285 ==

== ENCOUNTER 2025-06-19 06:04 | Day surgery (SDC) | payer MEDICARE, OTHER, SELFPAY ==
--- NOTE | 2025-06-18 17:16 | W.PM.DSUDISC ---
Date of service: 06/19/25 Discharge Plan Disposition Patient Disposition: Home Condition: Good Discharge Details Reason For Visit: screening colonoscopy Attending Provider: Tre Cottrell Primary Care Provider: Cris Mora Home Meds and New Rx's Prescriptions: Continued Co Q-10 300 mg capsule 300 mg PO .one every other day acetaminophen [Tylenol Extra Strength] 500 mg tablet 1,000 mg PO QHS lisinopril 5 mg tablet 10 mg PO DAILY sildenafil 100 mg tablet 100 mg PO DAILY PRN Rx Instructions: administer 30 minutes to 4 hours before activity torsemide 20 mg tablet 20 mg PO DAILY Rx Instructions: take 1/2 tab daily bisoprolol fumarate 5 mg tablet 5 mg PO DAILY pantoprazole [Protonix] 40 mg tablet,delayed release (DR/EC) 40 mg PO DAILY PRN Discontinued bisacodyl [Dulcolax (bisacodyl)] 5 mg tablet,delayed release (DR/EC) 5 mg PO ONCE Qty: 4 0RF Rx Instructions: Take per colonoscopy instructions provided by ordering providers office polyethylene glycol 3350 17 gram/dose powder 17 g PO ONCE Qty: 238 0RF Rx Instructions: Take per colonoscopy instructions provided by ordering providers office No Action aspirin 81 mg capsule 81 mg PO DAILY pravastatin 20 mg tablet 20 mg PO DAILY Patient Comments: TAKE ONE TABLET BY MOUTH EVERY DAY turmeric 1,500 mg PO DAILY Discharge Instructions Additional Instructions: Juniro, it was good seeing you and your today, and hope you feel well this afternoon. Everything went very smoothly. Your prep was excellent, we could see everything fine. The anastomosis, or connection of your colon looks excellent. It is widely patent, and there is no signs of any disease here. Also reassuring is the fact that the rest of your colon is also normal. I found no polyps, tumors, or anything worrisome. As we talked about beforehand, I would recommend another colonoscopy in 1 year, but I would encourage you to talk to your oncologist and your primary care doctors as well about this and get their opinion. If you need anything or have any questions at all, please do not hesitate to call. 1. If tolerated, consume a soft, low fiber diet for 1-2 days. [address] Do not drive, drink alcohol, operate machinery, make critical decisions, or do activities that require coordination or balance for 24 hours. 3. Because air was put into your colon during the procedure, expelling air from your rectum (passing gas or farting) is normal. 4. You may not have a bowel movement for 1-3 days because of the colonoscopy prep. This is normal. 5. Go directly to the emergency room if you notice any of the following: Develop chills (warm to touch), or if you have a thermometer and your temperature is above 101 Difficulty breathing or difficultly swallowing Persistent vomiting Severe abdominal pain, other than gas cramps Severe chest pain Black, tarry stools Any bleeding ? exceeding one tablespoon 6. Call your physician if the site where your intravenous was started becomes red, swollen, painful, and warm to touch. 7. Your physician has reviewed your pre-procedure medications. Please continue to take those medications as previously ordered. You will be given specific information/education regarding any changes to your medications before leaving. Stand Alone Forms: Anesthesia Discharge Inst., Aysha Virk (DSU) Activity:: Activity as Tolerated Diet:: As Tolerated Discharge Orders Discharge Orders: Discharge Order (Routine); Ordered 06/18/25 Ordered By: Tre Cottrell DS: Diagnosis Discharge Diagnosis (1) Normal screening colonoscopy: Status: Acute Asessment and Plan: Follow-up 1 year
--- NOTE | 2025-06-18 17:20 | W.COLOREPORT ---
Date of service: 06/19/25 Time of Service: 07:58 Colonoscopy Report Date of procedure: 06/19/25 Pre-op diagnosis general: screening colonscopy Post-op diagnosis procedure note: other (Negative screening colonoscopy) Procedure: colonoscopy Surgeon: Tre Cottrell Anesthesia Type: General:No Airway Estimated blood loss (mL): 0 Pathology: none sent Complications: None Disposition: same day Indications: Junior is a 74 year old man with a history of colon cancer. He needs his next screening colonoscopy Prep: Miralax/Dulcolax Procedure Start Time: 07:38 Procedure End Time: 07:52 Retraction Time: 6 Findings: Widely patent and healthy appearing colorectal anastomosis, otherwise negative colonoscopy Procedure Description: After the induction of anesthesia, and with the patient in left lateral decubitus position, I began by performing an external anorectal exam.? Perineum and skin were normal, as was the anal verge.? There was no evidence of external hemorrhoids.? Next, I performed a digital rectal exam.? I did not appreciate any abnormal findings.? Next, I advanced a colonoscope into the rectal vault.? I performed retroflexion.? This appeared normal.? Using irrigation, I then advanced the colonoscope beyond the rectal folds and into the sigmoid colon before advancing towards the cecum.? Few centimeters above the top portion of the rectal vault was a widely patent colorectal anastomosis. Great care was taken to examine all of the margins of this. Narrowband imaging was used to complement the exam. There is a retained suture at the edge of the anastomosis.? There are a few small diverticula adjacent to this as well. I saw no evidence of any other concerning pathology here. I continued advancing towards the right side. The scope was noted to be in the cecum by identification of the ileocecal valve and appendiceal orifice.? I then began withdrawing the colonoscope using repeated irrigation as necessary for full evaluation of the colonic mucosa. ?Once the scope was withdrawn to the level of the rectum, great care was taken to examine portions of the rectal folds.? Finally, the scope was withdrawn and the patient was brought to the same-day surgery recovery unit as the anesthetic wore off. ?The findings and instructions were shared with the patient prior to discharge. [place] Bowel Prep [place] Bowel Prep Right Colon: 3 Left Colon: 3 Transverse Colon: 3 Total Score: 9
[2025-06-19 06:29] VITALS: BP 133/95; PULSE 77; RESP 20; TEMP 36.3; O2SAT 98
[2025-06-19] MEDS: Lactated Ringers 1,000 ML 80 ML IV (06:46)
--- NOTE | 2025-06-19 07:04 | W.ANESPRE ---
General Info Date of Service Date Performed: 06/19/25 Height: 5 ft 11 in Weight: 101.5 kg Body Mass Index (BMI): 31.1 Surgical Procedure: Operation Date: 06/19/25 07:35 Proposed Procedure Side Surgeon joy Cottrell MD Meds Allergies and Home Medications Allergies Allergy/AdvReac Type Severity Reaction Status Date / Time metoprolol AdvReac Per Verified 06/19/25 06:15 states it dropped his BP way to low Home Medication ?Medication ?Instructions ?Recorded lisinopril 5 mg tablet 10 mg PO DAILY 01/04/24 sildenafil 100 mg tablet 100 mg PO DAILY PRN 01/04/24 torsemide 20 mg tablet 20 mg PO DAILY 01/04/24 acetaminophen 500 mg tablet 1,000 mg PO QHS 01/10/24 (Tylenol Extra Strength) coenzyme Q10 300 mg capsule (Co 300 mg PO .one every other day 01/10/24 Q-10) bisoprolol fumarate 5 mg tablet 5 mg PO DAILY 06/18/25 pantoprazole 40 mg tablet,delayed 40 mg PO DAILY PRN 06/18/25 release (Protonix) Held on 06/19/25. Instructions: Pt Stopped/Never Started aspirin 81 mg capsule 81 mg PO DAILY 06/19/25 pravastatin 20 mg tablet 20 mg PO DAILY 06/19/25 turmeric 1,500 mg PO DAILY 06/19/25 Current Visit Medications: Current Medications Generic Name Dose Route Start Last Admin Trade Name Freq PRN Reason Stop Dose Admin Ringer's Solution 1,000 mls @ 80 mls/hr 06/19/25 06:00 06/19/25 06:46 IV 06/19/25 23:59 80 mls/hr INFUSION FREDRICK Administration IV Miscellaneous Supplies 1 each 06/19/25 06:00 Iv Access IV 06/19/25 23:59 DIRECTED FREDRICK Sodium Chloride 0 ml 06/19/25 06:00 Normal Saline Flush 10 Ml Syr IV 06/19/25 23:59 PRN PRN Sodium Chloride 0 ml 06/19/25 06:00 Normal Saline 10 Ml Vial IJ 06/19/25 23:59 DIRECTED PRN Sterile Water 0 ml 06/19/25 06:00 Water,Injection,Sterile 10 Ml Vial IJ 06/19/25 23:59 DIRECTED PRN PFSH Active Problems Active Problems: Problem Status Onset Code Normal screening colonoscopy Acute Z12.11 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 Excessive flatus Acute R14.3 Colon cancer Chronic C18.9 Diverticula of colon Acute K57.30 Erosive esophagitis Acute K22.10 Hx of half-way use of blood thinners Acute Z92.29 Rectal bleeding Acute K62.5 Pacemaker Acute Z95.0 Melena Acute K92.1 Medical History Medical History 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 Erectile dysfunction Heart failure Prediabetes Diverticula of intestine Essential hypertension Atrial fibrillation Chronic kidney disease, stage 3 Chronic sinusitis Cervical spondylosis Metabolic syndrome X GERD (gastroesophageal reflux disease) Actinic keratosis Amyloidosis Hyperlipidemia Surgical History Surgical History S/P laparoscopic-assisted sigmoidectomy (~02/2024) History of appendectomy History of carpal tunnel release of both wrists Hx of total knee arthroplasty (R) History of colonoscopy (~01/2024) Tobacco Smoking/Tobacco Use Status: Never Alcohol Alcohol Intake: current Alcohol intake frequency: a few times a month Alcohol type: beer and wine Substance Use Substance use: Never Substance use type: does not use Vital Signs and Lab Results Vital Signs Most Recent Vital Signs in EMR: Most Recent Vital Signs Temp Pulse Resp BP Pulse Ox 36.3 C L 77 20 133/95 H 98 06/19/25 06:29 06/19/25 06:29 06/19/25 06:29 06/19/25 06:29 06/19/25 06:29 Lab Results Complete Metabolic Panel: Sodium, (136-145) 140 mmol/L 05/25/25, 08:10 Potassium, (3.5-5.1) 5.0 mmol/L 05/25/25, 08:10 Chloride, (98-107) 103 mmol/L 05/25/25, 08:10 Carbon Dioxide, (21.0-32.0) 31.4 mmol/L 05/25/25, 08:10 BUN, (7-18) 26 mg/dL H 05/25/25, 08:10 Creatinine, (0.70-1.30) 1.3 mg/dL 05/25/25, 08:10 Est GFR (CKD-EPI 2020), (mL/min/1.73m2) 57.29 05/25/25, 08:10 Calcium, (8.5-10.1) 9.4 mg/dL 05/25/25, 08:10 Albumin, (3.4-5.0) 4.1 g/dL 05/25/25, 08:10 Glucose, (74-106) 96 mg/dL 05/25/25, 08:10 Hemoglobin A1c, (<5.7) 6.0 % H 05/25/25, 08:10 Liver Function Panel: ALT, (16-63) 24 U/L 05/25/25, 08:10 AST, (15-37) 30 U/L 05/25/25, 08:10 Imaging and Studies Imaging and Studies Study information below may be from another EMR and interpreted by another provider. Please see original notes in EMR for more complete details. EKG Summary: 05/09/24: Exam: Resting ECG Reason for Exam: Dizziness Patient Location: E HR:73 bpm ECG Measurements Heart Rate 73 AXIS AL 133 P 145 QRSd 180 QRS -66 QT 493 T117 QTc 554 Conclusion Atrial-ventricular dual-paced rhythm, [place] complex vs PCV Rate 73 S[place] negative I have reviewed and I agree with the emergency room physician's ECG interpretation. 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 Reason for Placement:: Tachy-Jonny Syndrome Date of Last Device Interrogation:: 02/2025 Airway Exam Known Difficult Airway: No Mallampati Class: 2 Mouth Opening: Normal (> 3cm) Thyromental Distance: Greater than 3 cm Neck Range of Motion: Limited ROM Neck Circumference: Normal Teeth Condition: Removable Dentures/Plates Upper and Removable Dentures/Plates Lower ASA Classification ASA Score: ASA 3 Emergency Case?: No NPO Status NPO Status: NPO Clears >2 hours, Solids >8 hours Anesthesia Plan Resuscitation Status: Full Code Anesthesia Technique: General Anesthesia Airway Planned: Natural Airway Monitors Used: Standard Monitors
[2025-06-19 07:59] VITALS: BP 125/84; PULSE 76; RESP 16; TEMP 36.4; O2SAT 97
[2025-06-19 08:30] VITALS: BP 126/91; PULSE 75; RESP 16; TEMP 36.5; O2SAT 98
[2025-06-19 08:43] VITALS: BMI 31.1
--- NOTE | 2025-06-19 09:37 | W.ANESPOSTOP ---
Postoperative Evaluation Date, Time and Location Date Performed: 06/19/25 Time Performed: 08:10 Patient Location: Day Surgery Unit Vital Signs Most Recent Imported Vital Signs: Most Recent Vital Signs Temp Pulse Resp BP Pulse Ox 36.5 C 75 16 126/91 H 98 06/19/25 08:30 06/19/25 08:30 06/19/25 08:30 06/19/25 08:30 06/19/25 08:30 Pain Score Most Recent Pain Score: Most Recent Pain Score Pain Level 0 06/19/25 08:30 Assessment Mental Status: Awake (Alert & Oriented to Patient Baseline) Airway and Respiratory Function: Patent airway with normal (patient baseline) respiratory exam Cardiovascular Function: Hemodynamically Stable Hydration Status: Adequately Hydrated Nausea & Vomiting: No Nausea or Vomiting Pain: Pt. Denies Any Pain Peripheral Nerve Block: Patient did not receive a nerve block
== END 2025-06-19 08:35 | disposition home or self-care (01) ==
LOC: SUR 06:05
PROVIDERS: PCP Family Medicine; Visit Provider Surgery
PROC: 0DJD8ZZ Inspection of Lower Intestinal Tract, Via Natural or Artificial Opening Endoscopic (ICD-10-PCS; CPT 45378; principal; 2025-06-19 07:30)
DX: Z12.11 Encounter for screening for malignant neoplasm of colon (principal); Z85.038 Personal history of other malignant neoplasm of large intestine; K63.89 Other specified diseases of intestine; I12.9 Hypertensive chronic kidney disease with stage 1 through stage 4 chronic kidney disease, or unspecified chronic kidney disease; N18.30 Chronic kidney disease, stage 3 unspecified; K57.30 Diverticulosis of large intestine without perforation or abscess without bleeding
CPT/HCPCS: G0105; J2003; J2704

== ENCOUNTER 2025-07-16 03:34 | Outpatient (CLI) | payer MEDICARE, OTHER, SELFPAY ==
[2025-07-16 12:34] LABS: Abs Immature Grans 0.02 10^3/uL (0.0-0.06); HCT 41.6 % (40.0-50.0); HGB 14.1 g/dL (13.5-17.5); Immature Grans % 0.3 %; MCH 31.5 pg (27.0-33.0); MCHC 33.9 % (32.0-36.0); MCV 93 fL (80-95); MPV 9.4 fL (8.0-11.0); Platelet Count 197 10^3/uL (130-400); RBC 4.48 10^6/uL (4.36-5.78); RDW 12.2 % (11.8-14.1); RDW-SD 42.0 fL; WBC 7.97 10^3/uL (4.4-10.8)
[2025-07-16 12:50] LABS: ALT 28 U/L (16-63); AST 23 U/L (15-37); Albumin 3.9 g/dL (3.4-5.0); Alkaline Phosphatase 83 U/L (46-116); Anion Gap 9.3 mmol/L (3-11); BUN 30 mg/dL (7-18); Bilirubin, Total 0.5 mg/dL (0.2-1.0); CO2 26.7 mmol/L (21.0-32.0); Calcium 8.8 mg/dL (8.5-10.1); Chloride 103 mmol/L (98-107); Estimated GFR 52.41 (mL/min/1.73m2); Glucose 126 mg/dL (74-106); Potassium 4.2 mmol/L (3.5-5.1); Sodium 139 mmol/L (136-145); Total Protein 7.0 g/dL (6.4-8.2)
[2025-07-17 09:32] LABS: CEA 1.6 ng/mL (See Note)
== END 2025-07-16 03:35 | disposition home or self-care (01) ==
LOC: LBO 03:35
PROVIDERS: PCP Family Medicine; Visit Provider Internal Medicine Hematology & Oncology
DX: Z85.038 Personal history of other malignant neoplasm of large intestine (principal)
CPT/HCPCS: 36415; 80053; 82378; 85025

== ENCOUNTER 2025-07-30 16:40 | Outpatient (REF) | payer MEDICARE, OTHER, SELFPAY | END 2025-07-30 16:41 | disposition home or self-care (01) | LOC: NCHCN 16:40 | PROVIDERS: PCP Family Medicine; Visit Provider Family Medicine | DX: R30.0 Dysuria (principal) | CPT/HCPCS: 87077; 87086; 87186 ==